=== PATIENT | male | born 1985 | race Caucasian/White ===

== ENCOUNTER 2018-02-18 18:09 | Emergency (ER) | payer OTHER ==
[2018-02-18] MEDS ORDERED: IBUPROFEN 400 MG TAB ONE (19:41)
--- NOTE | 2018-02-18 19:58 | EDPHYS ---
Physician Documentation [facility] Name: Mahendra Xie Age: 32 yrs Sex: Male : 1985 Arrival Date: 02/18/2018 Time: 18:12 Bed 12 Private MD: None, None ED Physician Vamshi Azul HPI: 02/18 19:45 This 32 yrs old Male presents to ER via Ambulatory with complaints of Ankle jr8 Injury. 19:45 The patient presents with pain, swelling, tenderness. The complaints affect the right jr8 ankle. Onset: The symptoms/episode began/occurred acutely, today. Context: Patient was throwing large metal bar which landed on ankle. Pain and swelling since incident . Associated signs and symptoms: The patient has no apparent associated signs or symptoms. Modifying factors: The symptoms are alleviated by nothing, the symptoms are aggravated by movement. Severity of symptoms: At their worst the symptoms were mild, in the emergency department the symptoms are unchanged. The patient has not experienced similar symptoms in the past. The patient has not recently seen a physician. Historical: - Allergies: 18:38 No Known Allergies; aj - Home Meds: 18:38 duloxetine oral oral [Active]; Phenergan Oral [Active]; Zofran Oral [Active]; aj - PMHx: 18:38 Hypertension; Anxiety; Depression; Chronic pain; Migraines; aj - PSHx: 18:38 Cholecystectomy; aj - Immunization history:: Adult Immunizations up to date. - Social history:: Smoking status: Patient uses tobacco products, smokes one pack cigarettes per day. - Ebola Screening: : Patient negative for fever greater than or equal to 101.5 degrees Fahrenheit, and additional compatible Ebola Virus Disease symptoms Patient denies exposure to infectious person Patient denies travel to an Ebola-affected area in the 21 days before illness onset No symptoms or risks identified at this time. ROS: 19:45 Eyes: Negative for injury, pain, redness, and discharge, ENT: Negative for injury, jr8 pain, and discharge, Neck: Negative for injury, pain, and swelling, Cardiovascular: Negative for chest pain, palpitations, and edema, Respiratory: Negative for shortness of breath, cough, wheezing, and pleuritic chest pain, Abdomen/GI: Negative for abdominal pain, nausea, vomiting, diarrhea, and constipation, Back: Negative for injury and pain, Skin: Negative for injury, rash, and discoloration, Neuro: Negative for headache, weakness, numbness, tingling, and seizure. 19:45 MS/extremity: Positive for abrasion, pain, swelling, tenderness, of the right ankle. Exam: 19:45 Cardiovascular: Regular rate and rhythm with a normal S1 and S2. No gallops, murmurs, jr8 or rubs. Normal PMI, no JVD. No pulse deficits. Respiratory: Lungs have equal breath sounds bilaterally, clear to auscultation and percussion. No rales, rhonchi or wheezes noted. No increased work of breathing, no retractions or nasal flaring. Skin: Warm, dry with normal turgor. Normal color with no rashes, no lesions, and no evidence of cellulitis. Neuro: Awake and alert, GCS 15, oriented to person, place, time, and situation. Cranial nerves II-XII grossly intact. Motor strength 5/5 in all extremities. Sensory grossly intact. Cerebellar exam normal. Normal gait. 19:45 Musculoskeletal/extremity: Extremities: grossly normal except: noted in the right ankle: abrasion, pain, swelling, tenderness, Swelling localized to lateral malleolus , ROM: intact in all extremities, full active range of motion, full passive range of motion, limited passive range of motion, limited active range of motion due to pain, Circulation is intact in all extremities. Sensation intact. Vital Signs: 18:38 BP 131 / 80; Pulse 86; Resp 16; Temp 98.2; Pulse Ox 97% on R/A; Weight 90.72 kg; Height aj 6 ft. 0 in. (182.88 cm) (R); 18:38 Body Mass Index 27.12 (90.72 kg, 182.88 cm) aj MDM: 19:16 Patient medically screened. jr8 19:56 Data reviewed: vital signs, nurses notes, radiologic studies, plain films, and as a jr8 result, I will discharge patient. Data interpreted: Pulse oximetry: on room air is 97 %. Interpretation: normal. Counseling: I had a detailed discussion with the patient and/or guardian regarding: the historical points, exam findings, and any diagnostic results supporting the discharge/admit diagnosis, radiology results, the need for outpatient follow up, a orthopedic surgeon, to return to the emergency department if symptoms worsen or persist or if there are any questions or concerns that arise at home. 02/18 18:40 Order name: XRAY Ankle RIGHT 3 view; Complete Time: :14 Administered Medications: 19:41 Drug: Ibuprofen 800 mg Route: PO; 20:22 Follow up: Response: No adverse reaction; No change in condition 20:11 Drug: Tetanus-Diphtheria Toxoid Adult 0.5 ml {[employer]: [employer]. Exp: 05/07/2020. Lot #: [id number]. } Route: IM; Site: right deltoid; 20:22 Follow up: Response: No adverse reaction; No change in condition Disposition: 02/19 07:19 Co-signature as Attending Physician, Vamshi Azul MD I agree with the assessment and [facility] plan of care. Disposition: 02/18/18 19:57 Discharged to Home. Impression: Contusion of right ankle. - Condition is Stable. - Discharge Instructions: Ankle Pain. - Medication Reconciliation Form, Thank You Letter, Antibiotic Education, Prescription Opioid Use form. - Follow up: Darshan Gomez MD; When: As needed; Reason: Recheck today's complaints, Continuance of care, Re-evaluation by your physician. - Problem is new. - Symptoms have improved. Signatures: Dispatcher [employer] EDMS Laura To RN RN aj Anderson, Corey, MD MD cha Chretien, Felicia, RN RN Norbert Rodney PA PA jr8 Corrections: (The following items were deleted from the chart) 02/18 20:24 19:57 02/18/2018 19:57 Discharged to Home. Impression: Contusion of right ankle. Condition is Stable. Forms are Medication Reconciliation Form, Thank You Letter, Antibiotic Education, Prescription Opioid Use. Follow up: Dr. Darshan Gomez; When: As needed; Reason: Recheck today's complaints, Continuance of care, Re-evaluation by your physician. Problem is new. Symptoms have improved. jr8
--- NOTE | 2018-02-18 19:58 | ER ---
Nurse's Notes [facility] Name: Mahendra Xie Age: 32 yrs Sex: Male : 1985 Arrival Date: 02/18/2018 Time: 18:12 Bed 12 Private MD: None, None Diagnosis: Contusion of right ankle Presentation: 02/18 18:36 Presenting complaint: Patient states: Right ankle pain since yesterday after dropping a aj plate on right ankle. Transition of care: patient was not received from another setting of care. Onset of symptoms was February 17, 2018. Risk Assessment: Do you want to hurt yourself or someone else? Patient reports no desire to harm self or others. Care prior to arrival: None. 18:36 Method Of Arrival: Ambulatory 18:36 Acuity: SERENA 4 aj 20:23 Initial Sepsis Screen: Does the patient meet any 2 criteria? No. Patient's initial fc sepsis screen is negative. Does the patient have a suspected source of infection? No. Patient's initial sepsis screen is negative. Triage Assessment: 18:38 General: Appears in no apparent distress. comfortable, Behavior is calm, cooperative, aj appropriate for age. Pain: Complains of pain in right ankle. Neuro: Level of Consciousness is awake, alert, obeys commands, Oriented to person, place, time, situation, Appropriate for age. Respiratory: Airway is patent Respiratory effort is even, unlabored, Respiratory pattern is regular, symmetrical. Derm: Skin is intact, is healthy with good turgor, Skin is pink, warm \T\ dry. normal. Musculoskeletal: Reports pain in right ankle. Historical: - Allergies: 18:38 No Known Allergies; aj - Home Meds: 18:38 duloxetine oral oral [Active]; Phenergan Oral [Active]; Zofran Oral [Active]; aj - PMHx: 18:38 Hypertension; Anxiety; Depression; Chronic pain; Migraines; aj - PSHx: 18:38 Cholecystectomy; aj - Immunization history:: Adult Immunizations up to date. - Social history:: Smoking status: Patient uses tobacco products, smokes one pack cigarettes per day. - Ebola Screening: : Patient negative for fever greater than or equal to 101.5 degrees Fahrenheit, and additional compatible Ebola Virus Disease symptoms Patient denies exposure to infectious person Patient denies travel to an Ebola-affected area in the days before illness onset No symptoms or risks identified at this time. Screenin:21 Abuse screen: Denies threats or abuse. Nutritional screening: No deficits noted. fc Tuberculosis screening: No symptoms or risk factors identified. Fall Risk None identified. Assessment: 19:20 General: Appears uncomfortable, Behavior is calm, cooperative, appropriate for age. fc Pain: Complains of pain in right ankle Pain currently is 9 out of 10 on a pain scale. Quality of pain is described as aching, throbbing, Pain began 1 day ago. Is continuous, Aggravated by increased activity, repositioning, weight bearing. Neuro: Level of Consciousness is awake, alert, obeys commands, Oriented to person, place, time, situation. Cardiovascular: No deficits noted. Respiratory: No deficits noted. GI: No deficits noted. : No deficits noted. EENT: No deficits noted. Derm: Skin is pink, warm \T\ dry. Musculoskeletal: Circulation, motion, and sensation intact. Capillary refill < 3 seconds, Range of motion: intact in all extremities, Swelling present in right ankle Reports pain in right ankle. 19:30 Reassessment: Norbert HOWELL in to see and examine pt. fc 20:00 Reassessment: No changes from previously documented assessment. Patient and/or family fc updated on plan of care and expected duration. Pain level reassessed. Patient is alert, oriented x 3, equal unlabored respirations, skin warm/dry/pink. Pt pending discharge. Vital Signs: 18:38 BP 131 / 80; Pulse 86; Resp 16; Temp 98.2; Pulse Ox 97% on R/A; Weight 90.72 kg; Height aj 6 ft. 0 in. (182.88 cm) (R); 18:38 Body Mass Index 27.12 (90.72 kg, 182.88 cm) aj ED Course: 18:12 Patient arrived in ED. mr 18:12 None, None is Private Physician. mr 18:37 Triage completed. aj 18:38 Arm band placed on left wrist. Patient placed in waiting room, Patient notified of wait aj time. X-ray ordered. 19:16 Norbert Rodney PA is PHCP. jr8 19:16 Vamshi Azul MD is Attending Physician. jr8 19:21 Patient has correct armband on for positive identification. Call light in reach. fc 19:21 No provider procedures requiring assistance completed. Patient did not have IV access fc during this emergency room visit. 19:50 X-ray completed. Portable x-ray completed in exam room. Patient tolerated procedure bb2 well. 19:51 XRAY Ankle RIGHT 3 view In Process Unspecified. EDMS 19:57 Darshan Gomez MD is Referral Physician. jr8 Administered Medications: 19:41 Drug: Ibuprofen 800 mg Route: PO; fc 20:22 Follow up: Response: No adverse reaction; No change in condition fc 20:11 Drug: Tetanus-Diphtheria Toxoid Adult 0.5 ml {[employer]: [employer]. Exp: 05/07/2020. Lot #: [id number]. } Route: IM; Site: right deltoid; 20:22 Follow up: Response: No adverse reaction; No change in condition fc Outcome: 19:57 Discharge ordered by . jrVivi 20:23 Discharged to home ambulatory, with family. fc 20:23 Condition: good 20:23 Discharge instructions given to patient, family, Instructed on discharge instructions, follow up and referral plans. wound care, Demonstrated understanding of instructions, follow-up care, wound care, Prescriptions given X none 20:24 Patient left the ED. Signatures: Dispatcher [employer] EDOR Laura To RN RN aj Rivera, Maria mr Digna Koenig RN RN Norbert Rodney PA PA jrRaquel Monroy bb2
--- NOTE | 2018-02-18 20:09 | RAD REPORT ---
EXAM DESCRIPTION: RAD - Ankle Right 3 View - 02/18/2018 7:51 pm CLINICAL HISTORY: Trauma to the ankle, persistent pain COMPARISON: None. FINDINGS: No fracture, dislocation or periosteal reaction. No joint effusion seen. No joint space na rrowing. Lateral leg and ankle soft tissue swelling present. No foreign body. IMPRESSION: Soft tissue swelling with no foreign body or air. No acute bone or joint finding.
[2018-02-18] MEDS ORDERED: TETANUS & DIPHTHERIA TOX,ADULT 0.5 ML VIAL ONE (20:20)
== END 2018-02-18 20:24 | disposition home or self-care (01) ==
LOC: ER 18:09
DX: S90.01XA Contusion of right ankle, initial encounter (principal); I10 Essential (primary) hypertension; F41.9 Anxiety disorder, unspecified; F32.9 Major depressive disorder, single episode, unspecified; F17.210 Nicotine dependence, cigarettes, uncomplicated; W20.8XXA Other cause of strike by thrown, projected or falling object, initial encounter; Y93.89 Activity, other specified; Y92.9 Unspecified place or not applicable; Y99.9 Unspecified external cause status; Z23 Encounter for immunization
CPT/HCPCS: 90714; 99283

== ENCOUNTER 2019-01-06 01:48 | Emergency (ER) | payer OTHER ==
[2019-01-06 02:41] LABS: Absolute Lymphocytes (CBC) 2.4 K/uL (0.7-4.9); Absolute Monocytes 0.8 K/uL (0.1-1.3); Absolute Neutrophil 6.8 K/uL (1.8-8.0); Basophils % 0.3 % (0-1.3); Hematocrit 44.1 % (39.6-49.0); Lymphocytes % 23.8 % (15.3-44.8); MPV 10.3 fL (7.6-11.3); RBC Red Blood Cell Count 4.86 M/uL (4.33-5.43)
[2019-01-06 02:49] LABS: Barbiturates NEGATIVE (NEGATIVE); Benzodiazepines NEGATIVE (NEGATIVE); Cocaine NEGATIVE (NEGATIVE); METHAMPHETAM NEGATIVE (NEGATIVE); Methadone NEGATIVE (NEGATIVE); Opiates NEGATIVE (NEGATIVE); Phencyclidine NEGATIVE (NEGATIVE); THC Cannibis NEGATIVE (NEGATIVE)
[2019-01-06 02:52] LABS: Protime INR 0.98
[2019-01-06 02:58] LABS: ALT/SGPT 33 U/L (12-78); AST/SGOT 27 U/L (15-37); Albumin 4.1 g/dL (3.4-5.0); Alkaline Phosphatase 69 U/L (45-117); BUN Blood Urea Nitrogen 16 mg/dL (7-18); Bicarbonate 22 mmol/L (21-32); Bilirubin Direct < 0.1 mg/dL (0-0.2); Bilirubin Total 0.3 mg/dL (0.2-1.0); Glucose Level 92 mg/dL (74-106); Potassium 3.6 mmol/L (3.5-5.1); Protein, Total 7.7 g/dL (6.4-8.2); Sodium Level 141 mmol/L (136-145)
[2019-01-06] MEDS ORDERED: NA CHLORIDE 0.9% 1,000 ML ONE (04:15)
[2019-01-06 04:18] LABS: Urine Blood NEGATIVE (NEG); Urine Glucose NEGATIVE (NEG); Urine Protein NEGATIVE (NEG); Urine Specific Gravity <1.005 (1.005-1.030); Urine pH 5.5 (5.0-7.0)
--- NOTE | 2019-01-06 06:25 | EDPHYS ---
Physician Documentation [facility] Name: Mahendra Xie Age: 33 yrs Sex: Male : 1985 Arrival Date: 01/06/2019 Time: 01:49 Bed 17 Private MD: ED Physician Hany Villegas HPI: 01/06 06:21 This 33 yrs old Male presents to ER via Ambulatory with complaints of Psych tw4 Problem. 06:21 The patient presents to the emergency department with anxiety, depression, suicide tw4 ideation, but the patient has no formulated plan. Onset: The symptoms/episode began/occurred today. Past psychiatric history: Prior diagnosis: depression. Severity of symptoms: At their worst the symptoms were moderate in the emergency department the symptoms are unchanged. The patient has not experienced similar symptoms in the past. Historical: - Allergies: 02:04 No Known Allergies; tl2 - Home Meds: 02:04 duloxetine 60 mg oral cpDR 1 cap once daily [Active]; tl2 - PMHx: 02:04 Anxiety; Chronic pain; Depression; Hypertension; Migraines; TBI; tl2 - PSHx: 02:04 BlL ankle sx; neck sx; tl2 - Immunization history:: Adult Immunizations up to date. - Social history:: Smoking status: Patient uses tobacco products, smokes one pack cigarettes per day. Patient uses alcohol, on a daily basis. claims drinking about a 6 pack/day. Patient/guardian denies using street drugs. - Ebola Screening: : No symptoms or risks identified at this time. ROS: 06:21 Constitutional: Negative for fever, chills, and weight loss, Eyes: Negative for injury, tw4 pain, redness, and discharge, Cardiovascular: Negative for chest pain, palpitations, and edema, Respiratory: Negative for shortness of breath, cough, wheezing, and pleuritic chest pain, Abdomen/GI: Negative for abdominal pain, nausea, vomiting, diarrhea, and constipation, Back: Negative for injury and pain, MS/Extremity: Negative for injury and deformity. 06:21 Psych: Positive for depression, suicidal ideation. Exam: 06:21 Constitutional: This is a well developed, well nourished patient who is awake, alert, tw4 and in no acute distress. Head/Face: Normocephalic, atraumatic. Cardiovascular: Regular rate and rhythm with a normal S1 and S2. No gallops, murmurs, or rubs. Normal PMI, no JVD. No pulse deficits. Respiratory: Lungs have equal breath sounds bilaterally, clear to auscultation and percussion. No rales, rhonchi or wheezes noted. No increased work of breathing, no retractions or nasal flaring. Abdomen/GI: Soft, non-tender, with normal bowel sounds. No distension or tympany. No guarding or rebound. No evidence of tenderness throughout. MS/ Extremity: Pulses equal, no cyanosis. Neurovascular intact. Full, normal range of motion. Neuro: Awake and alert, GCS 15, oriented to person, place, time, and situation. Cranial nerves II-XII grossly intact. Motor strength 5/5 in all extremities. Sensory grossly intact. Cerebellar exam normal. Normal gait. 06:21 Psych: exam not indicated, Behavior/mood is cooperative, depressed, Affect is flat, Oriented to person, place, time, Patient having thoughts of suicide. Judgement / Insight is impaired. Vital Signs: 02:04 BP 132 / 85; Pulse 84; Resp 18; Temp 97.8(O); Pulse Ox 98% on R/A; Weight 92.99 kg; tl2 Height 6 ft. 0 in. (182.88 cm); Pain 0/10; 03:00 BP 137 / 82; Pulse 85; Resp 16; Pulse Ox 95% on R/A; lp1 04:00 BP 119 / 62; Pulse 84; Resp 18; Pulse Ox 99% on R/A; lp1 05:00 BP 137 / 92; Pulse 81; Resp 18; Pulse Ox 97% on R/A; lp1 05:00 BP 137 / 92; Pulse 81; Resp 18; Pulse Ox 96% on R/A; lp1 06:00 BP 138 / 79; Pulse 82; Resp 16; Pulse Ox 98% on R/A; lp1 02:04 Body Mass Index 27.80 (92.99 kg, 182.88 cm) tl2 MDM: 02:04 Patient medically screened. tw4 06:23 Differential diagnosis: drug withdrawal. Data reviewed: vital signs, nurses notes. Data tw4 interpreted: Pulse oximetry: Interpretation: normal. Counseling: I had a detailed discussion with the patient and/or guardian regarding: the historical points, exam findings, and any diagnostic results supporting the discharge/admit diagnosis, lab results. Other consultation: Psychiatrist Dr Huffman [id number] accepts for transfer. 01/06 02:04 Order name: Acetaminophen tw 01/06 02:04 Order name: Basic Metabolic Panel; Complete Time: 05:09 4 01/06 02:04 Order name: CBC with Diff 01/06 02:04 Order name: ETOH Level; Complete Time: 05:09 4 01/06 02:04 Order name: Hepatic Function 01/06 02:04 Order name: PT-INR 01/06 02:04 Order name: Ptt, Activated 01/06 02:04 Order name: Salicylate rust 01/06 02:04 Order name: Urine Drug Screen rust 01/06 02:04 Order name: EKG; Complete Time: 02:05 rust 01/06 02:04 Order name: EKG - Nurse/Tech; Complete Time: 02:22 rust 01/06 02:04 Order name: IV Saline Lock; Complete Time: 02:30 rust 01/06 02:31 Order name: Urine Dipstick--Ancillary (enter results) ak 01/06 02:04 Order name: Labs collected and sent; Complete Time: 02:29 rust 01/06 02:04 Order name: Urine Dipstick-Ancillary (obtain specimen); Complete Time: 02:30 tw4 Administered Medications: 04:05 Drug: NS 0.9% 1000 ml Route: IV; Rate: 1000 ml; Site: right antecubital; lp1 05:30 Follow up: IV Status: Completed infusion; IV Intake: 1000ml lp1 Disposition: 01/06/19 06:25 Transfer ordered to Psych Facility. Diagnosis are Suicidal ideations, Major depressive disorder, recurrent. - Reason for transfer: Higher level of care. - Accepting physician is Dr Huffman. - Condition is Stable. - Problem is new. - Symptoms are unchanged. Signatures: Dispatcher [employer] Ai Ochoa RN RN lp1 Sherri Pearl RN RN tl2 Hany Villegas MD MD tw4 Corrections: (The following items were deleted from the chart) 06:42 06:25 01/06/2019 06:25 Transfer ordered to Psych Facility. Diagnosis is Suicidal lp1 ideations; Major depressive disorder, recurrent. Reason for transfer: Higher level of care. Accepting physician is Dr Huffman. Condition is Stable. Problem is new. Symptoms are unchanged. tw4
--- NOTE | 2019-01-06 06:25 | ER ---
Nurse's Notes [facility] Name: Mahendra Xie Age: 33 yrs Sex: Male : 1985 Arrival Date: 01/06/2019 Time: 01:49 Bed 17 Private MD: Diagnosis: Suicidal ideations;Major depressive disorder, recurrent Presentation: 01/06 02:02 Presenting complaint: Patient states: "My medicine isn't working and I'm just tired of tl2 fighting myself and feeling worthless. All I do is work all day and then I come home and drink." Pt reports suicidal thoughts but no plan. Denies homicidal thoughts. Transition of care: patient was not received from another setting of care. Onset of symptoms was January 06, 2019. Risk Assessment: Do you want to hurt yourself or someone else? Patient reports no desire to harm self or others. Initial Sepsis Screen: Does the patient meet any 2 criteria? No. Patient's initial sepsis screen is negative. Does the patient have a suspected source of infection? No. Patient's initial sepsis screen is negative. Care prior to arrival: None. 02:02 Method Of Arrival: Ambulatory tl2 02:02 Acuity: SERENA 2 tl2 Triage Assessment: 02:04 General: Appears in no apparent distress. comfortable, Behavior is cooperative, tl2 appropriate for age, flat, Smells of alcohol. Pain: Denies pain. Neuro: Level of Consciousness is awake, alert, obeys commands, Oriented to person, place, time, situation. Cardiovascular: Denies chest pain. Respiratory: Airway is patent Respiratory effort is even, unlabored, Respiratory pattern is regular, symmetrical. Historical: - Allergies: 02:04 No Known Allergies; tl2 - Home Meds: 02:04 duloxetine 60 mg oral cpDR 1 cap once daily [Active]; tl2 - PMHx: 02:04 Anxiety; Chronic pain; Depression; Hypertension; Migraines; TBI; tl2 - PSHx: 02:04 BlL ankle sx; neck sx; tl2 - Immunization history:: Adult Immunizations up to date. - Social history:: Smoking status: Patient uses tobacco products, smokes one pack cigarettes per day. Patient uses alcohol, on a daily basis. claims drinking about a 6 pack/day. Patient/guardian denies using street drugs. - Ebola Screening: : No symptoms or risks identified at this time. Screenin:31 Abuse screen: Denies threats or abuse. Denies injuries from another. Nutritional lp1 screening: No deficits noted. Tuberculosis screening: No symptoms or risk factors identified. Fall Risk None identified. Assessment: 02:32 General: Appears in no apparent distress. Behavior is calm, cooperative. Pain: Denies lp1 pain. Neuro: Level of Consciousness is awake, alert, obeys commands, Oriented to person, place, time, situation. Cardiovascular: Patient's skin is warm and dry. Respiratory: Respiratory effort is even, unlabored. GI: No deficits noted. : No deficits noted. EENT: No deficits noted. Derm: Skin is intact, Skin is dry, Skin is normal. Musculoskeletal: No deficits noted. 03:34 Reassessment: Patient appears in no apparent distress at this time. Patient resting, lp1 eyes closed, respirations unlabored; friend at bedside. 04:30 Reassessment: Patient appears in no apparent distress at this time. Patient and/or lp1 family updated on plan of care and expected duration. Pain level reassessed. Patient resting, eyes closed, respirations unlabored. 04:41 Reassessment: Nurse to Nurse report given to DAYANARA Mackey at [facility]. lp1 05:30 Reassessment: Patient appears in no apparent distress at this time. No changes from lp1 previously documented assessment. 06:33 Reassessment: EMS at bedside for transfer. lp1 06:35 Reassessment: Patient is alert, oriented x 3, equal unlabored respirations, skin lp1 warm/dry/pink. Neuro: Gait is steady, Pupils are PERRLA. Psych: 02:07 Subjective: Patient's mood is sad, hopeless, Delusions are denied, Hallucinations are tl2 denied Having thoughts of suicide. Denies suicidal plan. Objective: Patient is cooperative, Speech is normal, Affect is flat. Interventions: Removed personal items and placed in bag. Patient placed in hospital gown. Suicide Risk Assessment: Sad Person Scale: Sex of patient: Male: Score 1 point. Age of patient: Score 1 point if patient 15-34. Depression: Score 1 point if signs of depression are present. Previous Attempt: Score 0 point if patient has not previously attempted suicide. Substance Abuse: Score 1 point if patient abuses alcohol or drugs. Rational Thinking: Score 0 point if patient has rational thinking. Social Support: Score 0 if social support is present/available. Organized Plan: Score 0 if patient did not have an organized plan in place. Relationship: Score 1 point if patient is , , , or for a single male Chronic Sickness: Score 0 point if patient does not have a chronic illness, debilitating, or severe disorder. TOTAL POINTS: If total points are 3-4, proposed clinical action is close follow-up/consider hospitalization. Safety Checks: Personal items have been removed. Door is open. Visitors are present. Patient uses 6 pack of beer, daily. Last use was 1 days ago. Commitment: Patient will be a voluntary commitment. Vital Signs: 02:04 BP 132 / 85; Pulse 84; Resp 18; Temp 97.8(O); Pulse Ox 98% on R/A; Weight 92.99 kg; tl2 Height 6 ft. 0 in. (182.88 cm); Pain 0/10; 03:00 BP 137 / 82; Pulse 85; Resp 16; Pulse Ox 95% on R/A; lp1 04:00 BP 119 / 62; Pulse 84; Resp 18; Pulse Ox 99% on R/A; lp1 05:00 BP 137 / 92; Pulse 81; Resp 18; Pulse Ox 97% on R/A; lp1 05:00 BP 137 / 92; Pulse 81; Resp 18; Pulse Ox 96% on R/A; lp1 06:00 BP 138 / 79; Pulse 82; Resp 16; Pulse Ox 98% on R/A; lp1 02:04 Body Mass Index 27.80 (92.99 kg, 182.88 cm) tl2 ED Course: 01:49 Patient arrived in ED. ds1 02:03 Triage completed. tl2 02:04 Hany Villegas MD is Attending Physician. tw4 02:04 Arm band placed on right wrist. tl2 02:07 Ai Singh, DAYANARA is Primary Nurse. lp1 02:15 Safety checks: Door open/sign placed on door: yes. Family/friend present: yes. Sitter cm6 present: Yes. 02:20 EKG done, by ED staff, reviewed by Hany Villegas MD. Inserted saline lock: 20 gauge lp1 in right antecubital area, using aseptic technique. Blood collected. 02:30 Safety checks: Items removed: yes. Door open/sign placed on door: yes. Family/friend cm6 present: yes. Sitter present: Yes. 02:33 Patient has correct armband on for positive identification. Placed in gown. lp1 02:48 Safety checks: Items removed: yes. Door open/sign placed on door: yes. Family/friend cm6 present: yes. Sitter present: Yes. 03:03 Safety checks: Items removed: yes. Door open/sign placed on door: yes. Family/friend cm6 present: yes. Sitter present: Yes. 03:18 Safety checks: Items removed: yes. Door open/sign placed on door: yes. Family/friend cm6 present: yes. Sitter present: Yes. 03:27 Safety checks: Items removed: yes. Door open/sign placed on door: yes. Family/friend cm6 present: yes. Sitter present: Yes. 03:33 Safety checks: Items removed: yes. Door open/sign placed on door: yes. Family/friend cm6 present: yes. Sitter present: Yes. 03:49 Safety checks: Items removed: yes. Door open/sign placed on door: yes. Family/friend cm6 present: yes. Sitter present: Yes. 04:04 Safety checks: Items removed: yes. Door open/sign placed on door: yes. Family/friend cm6 present: yes. Sitter present: Yes. 04:19 Safety checks: Items removed: yes. Door open/sign placed on door: yes. Family/friend cm6 present: yes. Sitter present: Yes. 04:35 Safety checks: Items removed: yes. Door open/sign placed on door: yes. Family/friend cm6 present: yes. Sitter present: Yes. 04:40 [facility] cartographic drafter arrived. de 04:50 Safety checks: Items removed: yes. Door open/sign placed on door: yes. Family/friend cm6 present: yes. Sitter present: Yes. 05:05 Safety checks: Items removed: yes. Door open/sign placed on door: yes. Family/friend cm6 present: yes. Sitter present: Yes. 05:20 Safety checks: Items removed: yes. Door open/sign placed on door: yes. Family/friend cm6 present: yes. Sitter present: Yes. 05:35 Safety checks: Items removed: yes. Door open/sign placed on door: yes. Family/friend cm6 present: yes. Sitter present: Yes. 05:50 Safety checks: Items removed: yes. Door open/sign placed on door: yes. Family/friend cm6 present: yes. Sitter present: Yes. 06:05 Safety checks: Items removed: yes. Door open/sign placed on door: yes. Family/friend cm6 present: yes. Sitter present: Yes. 06:20 Safety checks: Items removed: yes. Door open/sign placed on door: yes. Family/friend cm6 present: yes. Sitter present: Yes. 06:32 Safety checks: Items removed: yes. Door open/sign placed on door: yes. Family/friend cm6 present: yes. Sitter present: Yes. 06:34 No provider procedures requiring assistance completed. IV discontinued, No lp1 redness/swelling at site. Pressure dressing applied. Administered Medications: 04:05 Drug: NS 0.9% 1000 ml Route: IV; Rate: 1000 ml; Site: right antecubital; lp1 05:30 Follow up: IV Status: Completed infusion; IV Intake: 1000ml lp1 Intake: 05:30 IV: 1000ml; Total: 1000ml. lp1 Output: 03:15 Urine: 900ml (Voided); Total: 900ml. lp1 04:06 Urine: 650ml (Voided); Total: 1550ml. lp1 06:30 Urine: 650ml (Voided); Total: 2200ml. lp1 Outcome: 06:25 ER care complete, transfer ordered by . tw4 06:40 Transferred by ground EMS Note: To [facility] lp1 06:40 Condition: good 06:40 Instructed on the need for transfer. 06:42 Patient left the ED. lp1 Signatures: Pamela Daniel Laura, RN RN lp1 Sherri Pearl RN RN 2 Jessy Valdivia mt, Terrence, MD MD tw4 Janet Jung cm6
--- NOTE | 2019-01-06 16:50 | EKG ---
Test Date: 2019-01-06 Test Time: 02:14:04 [employer]umin[employer] Boats Assembler: JORDYN MEASUREMENT RESULTS: Intervals: Rate: 81 RI: 136 QRSD: 88 QT: 366 QTc: 425 [place]: P: 70 RI: 136 QRS: 99 T: 44 INTERPRETIVE STATEMENTS: Normal sinus rhythm Biatrial enlargement Rightward axis Abnormal ECG Compared to ECG 04/10/2016 22:25:56 Atrial abnormality now present Sinus arrhythmia no longer present Electronically Signed On 01-06-19 16:49:19 CDT by Rojas Cordon
== END 2019-01-06 06:42 ==
LOC: ER 01:48
DX: F33.9 Major depressive disorder, recurrent, unspecified (principal); I10 Essential (primary) hypertension; F41.9 Anxiety disorder, unspecified; F17.210 Nicotine dependence, cigarettes, uncomplicated
CPT/HCPCS: 93005; 85025; 80048; 36415; 80320; 80329 ×2; 85610; 80076; 80307 ×8; 85730; 81003; 96360; 99285; J7030

== ENCOUNTER 2019-02-26 14:28 | Emergency (ER) | payer OTHER ==
--- NOTE | 2019-02-26 15:45 | RAD REPORT ---
EXAM DESCRIPTION: RAD - Chest Pa And Lat (2 Views) - 02/26/2019 3:23 pm CLINICAL HISTORY: Chest pain COMPARISON: January 2009 TECHNIQUE: PA and lateral views of the chest were obtained. FINDINGS: The lungs are clear. Heart size is normal and central vasculature is within normal limit s. No pleural effusion or pneumothorax seen. No acute bony finding noted. No aortic abnormality. IMPRESSION: No acute cardiopulmonary process.
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
== END 2019-02-26 16:29 | disposition home or self-care (01) ==
LOC: ER 14:28
DX: R07.9 Chest pain, unspecified (principal); R09.1 Pleurisy; F41.9 Anxiety disorder, unspecified; F32.9 Major depressive disorder, single episode, unspecified; I10 Essential (primary) hypertension; Z87.820 Personal history of traumatic brain injury; F17.210 Nicotine dependence, cigarettes, uncomplicated
CPT/HCPCS: 71046; 99284

== ENCOUNTER 2019-08-14 19:36 | Emergency (ER) | payer OTHER ==
[2019-08-14 20:49] LABS: Basophils % 0.7 % (0-1.3); Hematocrit 43.4 % (39.6-49.0); Lymphocytes % 29.9 % (15.3-44.8); MPV 9.8 fL (7.6-11.3); RBC Red Blood Cell Count 4.72 M/uL (4.33-5.43)
[2019-08-14 20:53] LABS: Protime INR 0.97
--- NOTE | 2019-08-14 21:08 | EDPHYS ---
Physician Documentation [facility] Name: Mahendra Xie Age: 33 yrs Sex: Male : 1985 Arrival Date: 08/14/2019 Time: 19:39 Bed 15 Private MD: ED Physician Vamshi Azul HPI: 08/14 21:03 This 33 yrs old Male presents to ER via Ambulatory with complaints of Psych donato Problem, Suicidal Ideation. 21:03 The patient presents to the emergency department with depression, a history of donato substance abuse, Type: whisky, the amount of abuse is unknown, suicide ideation. Onset: The symptoms/episode began/occurred today. Past psychiatric history: Prior diagnosis: depression. Associated signs and symptoms: Pertinent positives; suicide ideation, resolved. Severity of symptoms: At their worst the symptoms were mild in the emergency department the symptoms are unchanged. The patient has not experienced similar symptoms in the past. Historical: - Allergies: 19:55 No Known Allergies; ca1 - Home Meds: 19:55 buspirone 10 mg Oral tab 1 tab daily [Active]; ca1 19:56 duloxetine 90 mg Oral cpDR 1 cap three times a day [Active]; hydrochlorothiazide 25 mg ca1 Oral tab once daily [Active]; - PMHx: 19:55 Anxiety; Bronchitis; Chronic pain; Depression; Hypertension; Migraines; TBI; ca1 - PSHx: 19:56 leg surgery; Cholecystectomy; ca1 - Immunization history:: Adult Immunizations up to date, Flu vaccine is not up to date. - Social history:: Smoking status: Patient uses tobacco products, smokes two packs cigarettes per day. Patient uses alcohol, claims drinking about a 6 pack/day. x 2. - Ebola Screening: : Patient negative for fever greater than or equal to 101.5 degrees Fahrenheit, and additional compatible Ebola Virus Disease symptoms Patient denies exposure to infectious person Patient denies travel to an Ebola-affected area in the 21 days before illness onset No symptoms or risks identified at this time. - Family history:: not pertinent. ROS: 21:03 Constitutional: Negative for fever, chills, and weight loss, Eyes: Negative for injury, donato pain, redness, and discharge, ENT: Negative for injury, pain, and discharge, Neck: Negative for injury, pain, and swelling, Cardiovascular: Negative for chest pain, palpitations, and edema, Respiratory: Negative for shortness of breath, cough, wheezing, and pleuritic chest pain, Abdomen/GI: Negative for abdominal pain, nausea, vomiting, diarrhea, and constipation, Back: Negative for injury and pain, : Negative for injury, bleeding, discharge, and swelling, MS/Extremity: Negative for injury and deformity, Skin: Negative for injury, rash, and discoloration, Neuro: Negative for headache, weakness, numbness, tingling, and seizure, Allergy/Immunology: Negative for hives, rash, and allergies, Endocrine: Negative for neck swelling, polydipsia, polyuria, polyphagia, and marked weight changes, Hematologic/Lymphatic: Negative for swollen nodes, abnormal bleeding, and unusual bruising. 21:03 Psych: Positive for depression, suicidal ideation. Exam: 21:03 Constitutional: This is a well developed, well nourished patient who is awake, alert, donato and in no acute distress. Head/Face: Normocephalic, atraumatic. Eyes: Pupils equal round and reactive to light, extra-ocular motions intact. Lids and lashes normal. Conjunctiva and sclera are non-icteric and not injected. Cornea within normal limits. Periorbital areas with no swelling, redness, or edema. ENT: Nares patent. No nasal discharge, no septal abnormalities noted. Tympanic membranes are normal and external auditory canals are clear. Oropharynx with no redness, swelling, or masses, exudates, or evidence of obstruction, uvula midline. Mucous membranes moist. Neck: Trachea midline, no thyromegaly or masses palpated, and no cervical lymphadenopathy. Supple, full range of motion without nuchal rigidity, or vertebral point tenderness. No Meningismus. Chest/axilla: Normal chest wall appearance and motion. Nontender with no deformity. No lesions are appreciated. Cardiovascular: Regular rate and rhythm with a normal S1 and S2. No gallops, murmurs, or rubs. Normal PMI, no JVD. No pulse deficits. Respiratory: Lungs have equal breath sounds bilaterally, clear to auscultation and percussion. No rales, rhonchi or wheezes noted. No increased work of breathing, no retractions or nasal flaring. Abdomen/GI: Soft, non-tender, with normal bowel sounds. No distension or tympany. No guarding or rebound. No evidence of tenderness throughout. Back: No spinal tenderness. No costovertebral tenderness. Full range of motion. Male : Normal genitalia with no discharge or lesions. Skin: Warm, dry with normal turgor. Normal color with no rashes, no lesions, and no evidence of cellulitis. MS/ Extremity: Pulses equal, no cyanosis. Neurovascular intact. Full, normal range of motion. Neuro: Awake and alert, GCS 15, oriented to person, place, time, and situation. Cranial nerves II-XII grossly intact. Motor strength 5/5 in all extremities. Sensory grossly intact. Cerebellar exam normal. Normal gait. Psych: Awake, alert, with orientation to person, place and time. Behavior, mood, and affect are within normal limits. Vital Signs: 19:56 BP 134 / 84; Pulse 109; Resp 19 S; Pulse Ox 97% on R/A; Weight 99.79 kg (R); Height 6 ca1 ft. (182.88 cm) (R); Pain 7/10; 21:00 jb4 19:56 Body Mass Index 29.84 (99.79 kg, 182.88 cm) ca1 21:00 PT refused further vitals jb4 MDM: 20:05 Patient medically screened. [facility] 21:05 Data reviewed: vital signs, nurses notes. [facility] 08/14 20:06 Order name: Acetaminophen [facility] 08/14 20:06 Order name: Basic Metabolic Panel [facility] 08/14 20:06 Order name: CBC with Diff [facility] 08/14 20:06 Order name: ETOH Level [facility] 08/14 20:06 Order name: Hepatic Function [facility] 08/14 20:06 Order name: PT-INR [facility] 08/14 20:06 Order name: Ptt, Activated [facility] 08/14 20:06 Order name: Salicylate [facility] 08/14 20:06 Order name: IV Saline Lock; Complete Time: 20:26 [facility] 08/14 20:06 Order name: Labs collected and sent; Complete Time: 20:26 [facility] Administered Medications: 21:20 Not Given (Patient Refused): NS 0.9% 1000 ml IV at 1 bolus Per protocol; 1000 mL bolus jb4 Disposition: 08/14/19 21:07 Discharged to Home. Impression: Major depressive disorder, recurrent, Alcohol abuse with intoxication. - Condition is Stable. - Discharge Instructions: Alcohol Intoxication, Suicidal Feelings: How to Help Yourself, Helping Someone Who is Suicidal, Alcohol Intoxication, [id number], Alcohol Abuse and Nutrition, Major Depressive Disorder. - Medication Reconciliation Form, Thank You Letter, Antibiotic Education, Prescription Opioid Use form. - Follow up: Private Physician; When: 2 - 3 days; Reason: Recheck today's complaints, Continuance of care, Re-evaluation by your physician. - Problem is new. - Symptoms have improved. Signatures: Dispatcher [employer] EDMS Vamshi Azul MD MD cha Bryson, James, RN RN jb4 Celi Fallon RN RN ca1 Corrections: (The following items were deleted from the chart) 21:20 20:06 EKG - Nurse/Tech ordered. donato mclean 21:20 20:06 Urine Dipstick-Ancillary ordered. donato mclean 21:21 21:07 08/14/2019 21:07 Discharged to Home. Impression: Major depressive disorder, jb4 recurrent; Alcohol abuse with intoxication. Condition is Stable. Forms are Medication Reconciliation Form, Thank You Letter, Antibiotic Education, Prescription Opioid Use. Follow up: Private Physician; When: 2 - 3 days; Reason: Recheck today's complaints, Continuance of care, Re-evaluation by your physician. Problem is new. Symptoms have improved. donato
--- NOTE | 2019-08-14 21:08 | ER ---
Nurse's Notes [facility] Name: Mahendra Xie Age: 33 yrs Sex: Male : 1985 Arrival Date: 08/14/2019 Time: 19:39 Bed 15 Private MD: Diagnosis: Major depressive disorder, recurrent;Alcohol abuse with intoxication Presentation: 08/14 19:46 Presenting complaint: Presenting complaint: Significant other states: Venkatesh CARPENTER sent ca1 him to the ER for attempted suicide. He attempted to cut his wrist, stab this leg and cut his throat. He had several previous attempts, we were always sent here and then sent to [facility]. Pt intoxicated. 19:51 Transition of care: patient was not received from another setting of care. Onset of ca1 symptoms was August 14, 2019. Risk Assessment: Do you want to hurt yourself or someone else? Patient reports desire/thoughts of hurting themselves or someone else. Provider notified. Initial Sepsis Screen: Does the patient meet any 2 criteria? No. Patient's initial sepsis screen is negative. Does the patient have a suspected source of infection? No. Patient's initial sepsis screen is negative. Care prior to arrival: None. 19:51 Acuity: SERENA 2 ca1 19:51 Method Of Arrival: Ambulatory ca1 Historical: - Allergies: 19:55 No Known Allergies; ca1 - Home Meds: 19:55 buspirone 10 mg Oral tab 1 tab daily [Active]; ca1 19:56 duloxetine 90 mg Oral cpDR 1 cap three times a day [Active]; hydrochlorothiazide 25 mg ca1 Oral tab once daily [Active]; - PMHx: 19:55 Anxiety; Bronchitis; Chronic pain; Depression; Hypertension; Migraines; TBI; ca1 - PSHx: 19:56 leg surgery; Cholecystectomy; ca1 - Immunization history:: Adult Immunizations up to date, Flu vaccine is not up to date. - Social history:: Smoking status: Patient uses tobacco products, smokes two packs cigarettes per day. Patient uses alcohol, claims drinking about a 6 pack/day. x 2. - Ebola Screening: : Patient negative for fever greater than or equal to 101.5 degrees Fahrenheit, and additional compatible Ebola Virus Disease symptoms Patient denies exposure to infectious person Patient denies travel to an Ebola-affected area in the 21 days before illness onset No symptoms or risks identified at this time. - Family history:: not pertinent. Screenin:00 Abuse screen: Denies threats or abuse. Nutritional screening: No deficits noted. jb4 Tuberculosis screening: No symptoms or risk factors identified. Fall Risk None identified. Assessment: 20:00 General: Appears in no apparent distress. comfortable, Behavior is calm, cooperative, jb4 appropriate for age, Smells of alcohol, Pt denies currently wanting to harm himself or other.. Pain: Denies pain. Neuro: Level of Consciousness is awake, alert, obeys commands, Oriented to person, place, time, situation. Cardiovascular: Patient's skin is warm and dry. Respiratory: Airway is patent Respiratory effort is even, unlabored, Respiratory pattern is regular, symmetrical. GI: No signs and/or symptoms were reported involving the gastrointestinal system. : No signs and/or symptoms were reported regarding the genitourinary system. EENT: No signs and/or symptoms were reported regarding the EENT system. Derm: Skin is intact, Skin is pink, warm \T\ dry. Musculoskeletal: Circulation, motion, and sensation intact. Range of motion: intact in all extremities. 21:00 Reassessment: Patient appears in no apparent distress at this time. Patient and/or jb4 family updated on plan of care and expected duration. Pain level reassessed. Patient is alert, oriented x 3, equal unlabored respirations, skin warm/dry/pink. 21:20 Reassessment: PT d/c home with , ambulatory with steady gait. PT and jb4 verbalized understanding of d/c of follow up instructions. Psych: 20:00 Subjective: Patient's mood is sad, Delusions are denied, Hallucinations are denied jb4 Having thoughts of suicide. Objective: Patient is cooperative, Speech is normal, Affect is appropriate. Interventions: Removed personal items and placed in bag. Patient placed in hospital gown. Searched person for dangerous items. Belonging list filled out. Suicide Risk Assessment: Sad Person Scale: Sex of patient: Male: Score 1 point. Age of patient: Score 1 point if patient 15-34. Depression: Score 1 point if signs of depression are present. Previous Attempt: Score 0 point if patient has not previously attempted suicide. Substance Abuse: Score 1 point if patient abuses alcohol or drugs. Rational Thinking: Score 1 point if patient is lacking rational thinking. Social Support: Score 0 if social support is present/available. Organized Plan: Score 0 if patient did not have an organized plan in place. Relationship: Score 0 point if patient has a spouse or domestic partner. Chronic Sickness: Score 1 point if patient has illness, chronic, debilitating, or severe. TOTAL POINTS: If total points are 5-6, proposed clinical action is to strongly consider hospitalization, depending upon confidence in the follow-up arrangement. Implement suicide precautions. Safety Checks: Personal items have been removed. Door is open. Visitors are present. Patient uses. Commitment: Patient will be a voluntary commitment. Vital Signs: 19:56 BP 134 / 84; Pulse 109; Resp 19 S; Pulse Ox 97% on R/A; Weight 99.79 kg (R); Height 6 ca1 ft. (182.88 cm) (R); Pain 7/10; 21:00 jb4 19:56 Body Mass Index 29.84 (99.79 kg, 182.88 cm) ca1 21:00 PT refused further vitals jb4 ED Course: 19:39 Patient arrived in ED. cl3 19:54 Triage completed. ca1 19:56 Arm band placed on right wrist. ca1 20:00 Patient has correct armband on for positive identification. Placed in gown. Bed in low jb4 position. Call light in reach. Side rails up X 1. band lining bander on. Pulse ox on. NIBP on. 20:05 Vamshi Azul MD is Attending Physician. [facility] 20:05 Safety checks: Items removed: yes. Door open/sign placed on door: yes. Family/friend lt1 present: yes. Sitter present: Yes. 20:26 Initial lab(s) drawn, by me, sent to lab. Inserted saline lock: 20 gauge in right lt1 antecubital area, using aseptic technique. 21:00 No provider procedures requiring assistance completed. IV discontinued, PT d/c'ed own jb4 IV. 21:19 Sukh Hanks, RN is Primary Nurse. jb4 Administered Medications: 21:20 Not Given (Patient Refused): NS 0.9% 1000 ml IV at 1 bolus Per protocol; 1000 mL bolus jb4 Outcome: 21:07 Discharge ordered by . donato 21:20 Discharged to home ambulatory, with family. jb4 21:20 Condition: stable 21:20 Discharge instructions given to patient, family, Instructed on discharge instructions, follow up and referral plans. Demonstrated understanding of instructions, follow-up care. 21:21 Patient left the ED. jb4 Signatures: Vamshi Azul MD MD cha Bryson, James RN RN jb4 Celi Fallon RN RN ca1 Virginie, Cindy lt1 Karma August cl3 Corrections: (The following items were deleted from the chart) 19:54 19:46 Presenting complaint: ca1 ca1
[2019-08-14 21:30] LABS: ALT/SGPT 30 U/L (12-78); AST/SGOT 25 U/L (15-37); BUN Blood Urea Nitrogen 13 mg/dL (7-18); Bicarbonate 26 mmol/L (21-32); Glucose Level 91 mg/dL (74-106); Potassium 3.6 mmol/L (3.5-5.1)
[2019-08-14 21:31] LABS: Alkaline Phosphatase 72 U/L (45-117); Bilirubin Direct < 0.1 mg/dL (0-0.2); Bilirubin Total 0.2 mg/dL (0.2-1.0); Protein, Total 7.5 g/dL (6.4-8.2)
[2019-08-14 21:39] LABS: Sodium Level 143 mmol/L (136-145)
[2019-08-14 22:48] VITALS: BP 134/84; O2SAT 97
== END 2019-08-14 21:21 | disposition home or self-care (01) ==
LOC: ER 19:36
DX: F33.9 Major depressive disorder, recurrent, unspecified (principal); F10.129 Alcohol abuse with intoxication, unspecified
CPT/HCPCS: 36415; 80048; 80076; 80320; 80329; 85025; 85610; 85730; 99285

== ENCOUNTER 2019-08-17 19:15 | Emergency (ER) | payer OTHER ==
[2019-08-17 20:12] LABS: Basophils % 0.4 % (0-1.3); Hematocrit 43.5 % (39.6-49.0); Lymphocytes % 22.7 % (15.3-44.8); MPV 10.1 fL (7.6-11.3); RBC Red Blood Cell Count 4.72 M/uL (4.33-5.43)
[2019-08-17 20:20] LABS: Urine Blood NEGATIVE (NEG); Urine Glucose NEGATIVE (NEG); Urine Protein NEGATIVE (NEG); Urine pH 5.5 (5.0-7.0)
[2019-08-17 20:24] LABS: ALT/SGPT 29 U/L (12-78); AST/SGOT 17 U/L (15-37); Albumin 4.1 g/dL (3.4-5.0); Alkaline Phosphatase 72 U/L (45-117); BUN Blood Urea Nitrogen 16 mg/dL (7-18); Bicarbonate 24 mmol/L (21-32); Bilirubin Direct 0.1 mg/dL (0-0.2); Bilirubin Total 0.2 mg/dL (0.2-1.0); Glucose Level 82 mg/dL (74-106); Potassium 3.6 mmol/L (3.5-5.1); Protein, Total 7.8 g/dL (6.4-8.2); Sodium Level 135 mmol/L (136-145)
[2019-08-17 20:27] LABS: Protime INR 0.98
[2019-08-17 20:42] LABS: Barbiturates NEGATIVE (NEGATIVE); Benzodiazepines NEGATIVE (NEGATIVE); Cocaine NEGATIVE (NEGATIVE); METHAMPHETAM NEGATIVE (NEGATIVE); Methadone NEGATIVE (NEGATIVE); Opiates NEGATIVE (NEGATIVE); Phencyclidine NEGATIVE (NEGATIVE); THC Cannibis NEGATIVE (NEGATIVE)
[2019-08-17] MEDS ORDERED: NA CHLORIDE 0.9% 1,000 ML ONE (21:45)
[2019-08-18] MEDS ORDERED: cloNIDine HCL 0.1 MG TAB ONE (03:35)
--- NOTE | 2019-08-18 04:18 | ER ---
Nurse's Notes [facility] Name: Mahendra Xie Age: 33 yrs Sex: Male : 1985 Arrival Date: 08/17/2019 Time: 19:17 Bed 17 [facility] MD: Diagnosis: Suicidal ideations Presentation: 08/17 19:20 Presenting complaint: Patient states: his psych meds have not been working and in the aa1 past 3 days he has tried to kill himself twice in the past 2 days by cutting himself. Multiple superficial lacerations noted to aida forearms. Pt reports he has also drank about 11 beers today. Transition of care: patient was not received from another setting of care. Complicating Factors: There are no complicating factors for this patient. Onset of symptoms was August 17, 2019. Risk Assessment: Do you want to hurt yourself or someone else? Patient reports desire/thoughts of hurting themselves or someone else. Provider notified. Initial Sepsis Screen: Does the patient meet any 2 criteria? No. Patient's initial sepsis screen is negative. Does the patient have a suspected source of infection? Yes: Skin breakdown/wound. Care prior to arrival: None. 19:20 Method Of Arrival: Wheelchair aa1 19:20 Acuity: SERENA 2 aa1 Triage Assessment: 19:20 General: Appears in no apparent distress. comfortable, unkempt, Behavior is calm, aa1 cooperative, appropriate for age. 19:20 General: Smells of alcohol. aa1 Historical: - Allergies: 19:40 No Known Allergies; aa1 - Home Meds: 19:40 buspirone 10 mg Oral tab 1 tab daily [Active]; duloxetine 90 mg Oral cpDR 1 cap three aa1 times a day [Active]; hydrochlorothiazide 25 mg Oral tab once daily [Active]; Ventolin HFA 90 mcg/actuation Nebulizer HFAA [Active]; - PMHx: 19:40 Anxiety; Bronchitis; Chronic pain; Depression; Hypertension; Migraines; TBI; suicide aa1 attempts; - PSHx: 19:40 leg surgery; Cholecystectomy; aa1 - Immunization history:: Last tetanus immunization: up to date. - Social history:: Smoking status: Patient uses tobacco products, smokes two packs cigarettes per day. Patient uses alcohol, on a daily basis. - Ebola Screening: : No symptoms or risks identified at this time. Screenin/11 02:00 Abuse screen: Denies threats or abuse. Denies injuries from another. Nutritional wh screening: No deficits noted. Tuberculosis screening: No symptoms or risk factors identified. Fall Risk None identified. Assessment: 08/17 19:54 General: Appears uncomfortable, Behavior is cooperative. General: Reports Suicidal tr5 ideations. Pain: Complains of pain in right arm and left arm. Neuro: Level of Consciousness is awake, alert, obeys commands, Oriented to person, place, time. Cardiovascular: Heart tones present Capillary refill < 3 seconds. Respiratory: Airway is patent Respiratory effort is even, unlabored, Respiratory pattern is regular, symmetrical. GI: No signs and/or symptoms were reported involving the gastrointestinal system. : No signs and/or symptoms were reported regarding the genitourinary system. EENT: No signs and/or symptoms were reported regarding the EENT system. Derm: Skin Lacerations to bilateral forearms. Musculoskeletal: No signs and/or symptoms reported regarding the musculoskeletal system. Injury Description: Laceration is superficial, not bleeding. 21:00 Reassessment: Patient appears in no apparent distress at this time. Patient and/or tr5 family updated on plan of care and expected duration. Pain level reassessed. Pt has family members at bedside. Sitter in place. 22:00 Reassessment: Patient appears in no apparent distress at this time. Patient and/or tr5 family updated on plan of care and expected duration. Pain level reassessed. Sitter in place. 23:00 Reassessment: Patient appears in no apparent distress at this time. Patient and/or tr5 family updated on plan of care and expected duration. Pain level reassessed. Pt in bed resting. Pt's family in with pt at bedside. Sitter in place. 08/18 01:53 Reassessment: Patient appears in no apparent distress at this time. Patient and/or wh family updated on plan of care and expected duration. Pain level reassessed. Patient is alert, oriented x 3, equal unlabored respirations, skin warm/dry/pink. 02:34 Reassessment: Soil Science Technical Officer from [facility] at bedside for assessment. 03:10 Reassessment: Patient appears in no apparent distress at this time. No changes from previously documented assessment. Patient and/or family updated on plan of care and expected duration. Pain level reassessed. Patient is alert, oriented x 3, equal unlabored respirations, skin warm/dry/pink. 04:19 Reassessment: Patient appears in no apparent distress at this time. No changes from previously documented assessment. Patient and/or family updated on plan of care and expected duration. Pain level reassessed. Patient is alert, oriented x 3, equal unlabored respirations, skin warm/dry/pink. Vital Signs: 08/17 19:20 BP 143 / 104; Pulse 73; Resp 16; Temp 97.6; Pulse Ox 100% on R/A; Weight 99.79 kg; aa1 Height 6 ft. 0 in. (182.88 cm); Pain /; 08/18 02:00 BP 145 / 85; Pulse 84; Resp 18; Temp 96.7; Pulse Ox 99% ; Pain 0/10; cm6 04:30 BP 127 / 84; Pulse 82; Resp 18; Pulse Ox 99% on R/A; wh 08/17 19:20 Body Mass Index 29.84 (99.79 kg, 182.88 cm) aa1 ED Course: 08/17 19:17 Patient arrived in ED. mr 19:20 Arm band placed on right wrist. Patient placed in an exam room, on a stretcher. aa1 19:21 Jose Chavez MD is Attending Physician. [facility] 19:30 Safety checks: Items removed: yes. Door open/sign placed on door: yes. Family/friend oe present: yes. Sitter present: Yes. 19:34 Roddy Bains RN is Primary Nurse. tr5 19:38 Triage completed. aa1 19:45 Safety checks: Items removed: yes. Door open/sign placed on door: yes. Family/friend oe present: yes. Sitter present: Yes. 19:53 Inserted saline lock: 22 gauge in left antecubital area, using aseptic technique. Blood oe collected. 20:00 Safety checks: Items removed: yes. Door open/sign placed on door: yes. Family/friend oe present: yes. Sitter present: Yes. 20:15 Safety checks: Items removed: yes. Door open/sign placed on door: yes. Family/friend oe present: yes. Sitter present: Yes. 20:30 Safety checks: Items removed: yes. Door open/sign placed on door: yes. Family/friend oe present: yes. Sitter present: Yes. 20:45 Safety checks: Items removed: yes. Door open/sign placed on door: yes. Family/friend oe present: yes. Sitter present: Yes. 21:00 Safety checks: Items removed: yes. Door open/sign placed on door: yes. Family/friend oe present: yes. Sitter present: Yes. 21:15 Safety checks: Items removed: yes. Door open/sign placed on door: yes. Family/friend oe present: yes. Sitter present: Yes. 21:30 Safety checks: Items removed: yes. Door open/sign placed on door: yes. Family/friend oe present: yes. Sitter present: Yes. 21:40 Carmita Caballero FNP-C is PHCP. snw 21:45 Safety checks: Items removed: yes. Door open/sign placed on door: yes. Family/friend oe present: yes. Sitter present: Yes. 22:00 Safety checks: Items removed: yes. Door open/sign placed on door: yes. Family/friend oe present: yes. Sitter present: Yes. 22:15 Safety checks: Items removed: yes. Door open/sign placed on door: yes. Family/friend oe present: yes. Sitter present: Yes. 22:30 Safety checks: Items removed: yes. Door open/sign placed on door: yes. Family/friend oe present: yes. Sitter present: Yes. 22:45 Safety checks: Items removed: yes. Door open/sign placed on door: yes. Family/friend oe present: yes. Sitter present: Yes. 23:00 Safety checks: Items removed: yes. Door open/sign placed on door: yes. Family/friend oe present: yes. Sitter present: Yes. 23:15 Safety checks: Items removed: yes. Door open/sign placed on door: yes. Family/friend oe present: yes. Sitter present: Yes. 23:30 Safety checks: Items removed: yes. Door open/sign placed on door: yes. Family/friend oe present: yes. Sitter present: Yes. 23:45 Safety checks: Items removed: yes. Door open/sign placed on door: yes. Family/friend oe present: yes. Sitter present: Yes. 12/11 00:00 Safety checks: Items removed: yes. Door open/sign placed on door: yes. Family/friend oe present: yes. Sitter present: Yes. 00:15 Safety checks: Items removed: yes. Door open/sign placed on door: yes. Family/friend oe present: yes. Sitter present: Yes. 00:30 Safety checks: Items removed: yes. Door open/sign placed on door: yes. Family/friend oe present: no. Sitter present: Yes. 00:45 Safety checks: Items removed: yes. Door open/sign placed on door: yes. Family/friend oe present: no. Sitter present: Yes. 01:00 Safety checks: Items removed: yes. Door open/sign placed on door: yes. Family/friend oe present: no. Sitter present: Yes. 01:15 Safety checks: Items removed: yes. Door open/sign placed on door: yes. Family/friend cm6 present: no. Sitter present: Yes. 01:30 Safety checks: Items removed: yes. Door open/sign placed on door: yes. Family/friend cm6 present: no. Sitter present: Yes. 01:45 Safety checks: Items removed: yes. Door open/sign placed on door: yes. Family/friend cm6 present: no. Sitter present: Yes. 01:45 Report received from Roddy Bains RN. 02:00 Safety checks: Items removed: yes. Door open/sign placed on door: yes. Family/friend cm6 present: no. Sitter present: Yes. 02:00 Patient has correct armband on for positive identification. Placed in gown. Bed in low wh position. Call light in reach. Side rails up X 1. Sitter at bedside. 02:15 Safety checks: Items removed: yes. Door open/sign placed on door: yes. Family/friend cm6 present: no. Sitter present: Yes. 02:30 Safety checks: Items removed: yes. Door open/sign placed on door: yes. Family/friend cm6 present: no. Sitter present: Yes. 02:33 [facility] is evaluating patient. cm6 02:45 Safety checks: Items removed: yes. Door open/sign placed on door: yes. Family/friend cm6 present: no. Sitter present: Yes. 03:00 Safety checks: Items removed: yes. Door open/sign placed on door: yes. Family/friend cm6 present: no. Sitter present: Yes. 03:15 Safety checks: Items removed: yes. Door open/sign placed on door: yes. Family/friend cm6 present: no. Sitter present: Yes. 03:18 [facility] evaluating pt. cm6 03:30 Safety checks: Items removed: yes. Door open/sign placed on door: yes. Family/friend cm6 present: no. Sitter present: Yes. 03:32 [facility] has left. cm6 03:45 Safety checks: Items removed: yes. Door open/sign placed on door: yes. Family/friend cm6 present: no. Sitter present: Yes. 04:00 Safety checks: Items removed: yes. Door open/sign placed on door: yes. Family/friend cm6 present: no. Sitter present: Yes. 04:37 No provider procedures requiring assistance completed. IV discontinued, intact, bleeding controlled, No redness/swelling at site. Administered Medications: 08/17 21:53 Drug: NS 0.9% 1000 ml Route: IV; Rate: 1 bolus; Site: left antecubital; tr5 08/18 04:38 Follow up: Response: No adverse reaction; IV Status: Completed infusion 03:30 Drug: cloNIDine 0.1 mg Route: PO; 04:19 Follow up: Response: No adverse reaction Outcome: 04:17 Discharge ordered by . md 04:37 Discharged to home ambulatory. 04:37 Condition: stable 04:37 Discharge instructions given to patient, Instructed on discharge instructions, follow up and referral plans. POC Demonstrated understanding of instructions, follow-up care, POC 04:38 Patient left the ED. Signatures: Francoise Rodriguez RN RN aa1 Carmita Caballero, SECOND VP HR ASSESSMENT-C SECOND VP HR ASSESSMENT-Csnw Dustin, Liz Turner, Cristian Holland Bobby Fisher MD MD wa Singer, Phillip, MD MD ps1 Mack, Candace cm6 Roddy Bains RN RN tr5 Corrections: (The following items were deleted from the chart) 08/17 20:18 20:04 Safety checks: Items removed: yes. Door open/sign placed on door: yes. oe Family/friend present: yes. Sitter present: Yes. oe 20:19 20:17 Safety checks: Items removed: yes. Door open/sign placed on door: yes. oe Family/friend present: yes. Sitter present: Yes. oe 21:11 20:43 Safety checks: Items removed: yes. Door open/sign placed on door: yes. oe Family/friend present: yes. Sitter present: Yes. oe 21:28 21:24 Safety checks: Items removed: yes. Door open/sign placed on door: yes. oe Family/friend present: yes. Sitter present: Yes. oe 23:20 21:00 Reassessment: Patient appears in no apparent distress at this time. Patient tr5 and/or family updated on plan of care and expected duration. Pain level reassessed. Pt has family members at bedside. tr5 23:20 22:00 Reassessment: Patient appears in no apparent distress at this time. Patient tr5 and/or family updated on plan of care and expected duration. Pain level reassessed. tr5 08/18 00:47 00:45 Safety checks: Items removed: yes. Door open/sign placed on door: yes. oe Family/friend present: yes. Sitter present: Yes. oe 02:32 02:14 Safety checks: Items removed: yes. Door open/sign placed on door: yes. cm6 Family/friend present: no. Sitter present: Yes. cm6 02:36 02:33 Mental health deputy is evaluating patient cm6 cm6 03:44 1210 23:00 BP 145 / 85; Pulse 84bpm; Resp 18bpm; Pulse Ox 99%; Temp 96.7F; Pain 0/10; cm6 cm6 08/18 03:45 00:00 BP 145 / 85; Pulse 84bpm; Resp 18bpm; Pulse Ox 99%; Temp 96.7F; Pain 0/10; cm6 cm6 04:12 03:41 Safety checks: Items removed: yes. Door open/sign placed on door: yes. cm6 Family/friend present: no. Sitter present: Yes. cm6
--- NOTE | 2019-08-18 04:19 | EDPHYS ---
Physician Documentation [facility] Name: Mahendra Xie Age: 33 yrs Sex: Male : 1985 Arrival Date: 08/17/2019 Time: 19:17 Bed 17 Private MD: ED Physician Jose Chavez HPI: 08/17 19:29 This 33 yrs old Male presents to ER via Unassigned with complaints of ps1 Laceration To Arm. 19:29 patient has SI thoughts and has superficial lacerations to bilateral arms. States that ps1 he has been hospitalized for same. On duloxitine with recent increase in medication. Clearly intoxicated. From [place] and in town for work. 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 . Historical: - Allergies: 19:40 No Known Allergies; aa1 - Home Meds: 19:40 buspirone 10 mg Oral tab 1 tab daily [Active]; duloxetine 90 mg Oral cpDR 1 cap three aa1 times a day [Active]; hydrochlorothiazide 25 mg Oral tab once daily [Active]; Ventolin HFA 90 mcg/actuation Nebulizer HFAA [Active]; - PMHx: 19:40 Anxiety; Bronchitis; Chronic pain; Depression; Hypertension; Migraines; TBI; suicide aa1 attempts; - PSHx: 19:40 leg surgery; Cholecystectomy; aa1 - Immunization history:: Last tetanus immunization: up to date. - Social history:: Smoking status: Patient uses tobacco products, smokes two packs cigarettes per day. Patient uses alcohol, on a daily basis. - Ebola Screening: : No symptoms or risks identified at this time. ROS: 19:29 Unable to obtain ROS due to altered mental status, Psych and intoxicated. Unreliable. ps1 21:51 Constitutional: Negative for fever, chills, and weight loss, Eyes: Negative for injury, snw pain, redness, and discharge, ENT: Negative for injury, pain, and discharge, Neck: Negative for injury, pain, and swelling, Cardiovascular: Negative for chest pain, palpitations, and edema, Respiratory: Negative for shortness of breath, cough, wheezing, and pleuritic chest pain, Abdomen/GI: Negative for abdominal pain, nausea, vomiting, diarrhea, and constipation, Back: Negative for injury and pain, : Negative for injury, bleeding, discharge, and swelling, MS/Extremity: Negative for injury and deformity, Skin: Negative for injury, rash, and discoloration, Neuro: Negative for headache, weakness, numbness, tingling, and seizure. 21:51 Psych: Positive for pt states he caused "self harm" so he can see the [facility] psychiatrist sooner and not be on the waiting list. Pt belligerent and stating he is going to leave. PD called for warrant. Exam: 19:29 Constitutional: This is a well developed, well nourished patient who is awake, alert, ps1 and in no acute distress. Head/Face: Normocephalic, atraumatic. Eyes: Pupils equal round and reactive to light, extra-ocular motions intact. Lids and lashes normal. Conjunctiva and sclera are non-icteric and not injected. Chest/axilla: Normal chest wall appearance and motion. Nontender with no deformity. No lesions are appreciated. Cardiovascular: Regular rate and rhythm. No gallops, murmurs, or rubs. Normal PMI, no JVD. No pulse deficits. Respiratory: Lungs have equal breath sounds bilaterally, clear to auscultation and percussion. No rales, rhonchi or wheezes noted. No increased work of breathing, no retractions or nasal flaring. Abdomen/GI: Soft, non-tender, with normal bowel sounds. No distension or tympany. No guarding or rebound. No evidence of tenderness throughout. MS/ Extremity: Pulses equal, no cyanosis. Neurovascular intact. Full, normal range of motion. Neuro: Awake and alert, GCS 15, oriented to person, place, time, and situation. Cranial nerves II-XII grossly intact. Sensory grossly intact. 19:29 Skin: injury, laceration(s), multiple superficial lacerations to bilateral forearms. . 19:29 Psych: Behavior/mood is suicidal, Affect is calm, Patient having thoughts of suicide. Judgement / Insight is impaired. slurring words from intoxication. Vital Signs: 19:20 BP 143 / 104; Pulse 73; Resp 16; Temp 97.6; Pulse Ox 100% on R/A; Weight 99.79 kg; aa1 Height 6 ft. 0 in. (182.88 cm); Pain /10; 12/11 02:00 BP 145 / 85; Pulse 84; Resp 18; Temp 96.7; Pulse Ox 99% ; Pain 0/10; cm6 04:30 BP 127 / 84; Pulse 82; Resp 18; Pulse Ox 99% on R/A; wh 08/17 19:20 Body Mass Index 29.84 (99.79 kg, 182.88 cm) aa1 MDM: 08/17 19:29 Patient medically screened. ps1 21:49 Data reviewed: vital signs, nurses notes. Data interpreted: Pulse oximetry: on room air snw is 100 %. Interpretation: normal. Counseling: I had a detailed discussion with the patient and/or guardian regarding: the historical points, exam findings, and any diagnostic results supporting the discharge/admit diagnosis, need to give IVF for hydration and redraw for ETOH level before [facility] can be called. Pt refuses. Notified I would call police for a warrant, pt states that is fine.. 08/18 01:43 ED course: ETOH level down to acceptable level for contact with [facility]. snw 03:10 Other consultation: [facility] in with patient. snw 03:16 Transition of care: After a detail discussion of the patient's case, care is snw transferred to Bobby Fisher MD. 04:15 ED course: seen by MAT team. deem appropriate for out pt f/u. MAT discussed with pt and wa family and gave out-pt f/u. thery agreed and plan to f/u as discussed. 08/17 19:29 Order name: Acetaminophen; Complete Time: 20:28 ps1 08/17 19:29 Order name: Basic Metabolic Panel; Complete Time: 20:28 ps1 08/17 19:29 Order name: CBC with Diff; Complete Time: 20:27 ps1 08/17 19:29 Order name: ETOH Level; Complete Time: 20:27 ps1 08/17 19:29 Order name: Hepatic Function; Complete Time: 20:28 ps1 08/17 19:29 Order name: PT-INR; Complete Time: 20:33 ps1 08/17 19:29 Order name: Ptt, Activated; Complete Time: 20:33 ps1 08/17 19:29 Order name: Salicylate; Complete Time: 20:59 ps1 08/17 19:29 Order name: Urine Drug Screen; Complete Time: 20:52 ps1 08/17 19:29 Order name: EKG; Complete Time: 19:30 [facility] 08/17 20:12 Order name: Urine Dipstick--Ancillary (enter results); Complete Time: 20:22 2 08/18 00:15 Order name: ETOH Level; Complete Time: 00:56 tr5 08/17 19:29 Order name: EKG - Nurse/Tech; Complete Time: 20:11 ps1 08/17 19:29 Order name: IV Saline Lock; Complete Time: 19:54 [facility] 08/17 19:29 Order name: Labs collected and sent; Complete Time: 19:54 [facility] 08/17 19:29 Order name: Urine Dipstick-Ancillary (obtain specimen); Complete Time: 20:10 [facility] 08/18 00:57 Order name: consult Order-[facility] snw Administered Medications: 08/17 21:53 Drug: NS 0.9% 1000 ml Route: IV; Rate: 1 bolus; Site: left antecubital; tr5 08/18 04:38 Follow up: Response: No adverse reaction; IV Status: Completed infusion 03:30 Drug: cloNIDine 0.1 mg Route: PO; 04:19 Follow up: Response: No adverse reaction Disposition: 08/18/19 04:17 Discharged to Home. Impression: Suicidal ideations. - Condition is Stable. - Discharge Instructions: Suicidal Feelings: How to Help Yourself, Helping Someone Who is Suicidal. - Medication Reconciliation Form, Thank You Letter, Antibiotic Education, Prescription Opioid Use form. - Follow up: Private Physician; When: 1 - 2 days; Reason: Recheck today's complaints. - Problem is new. - Symptoms have improved. - Notes: follow up with psychiatry team as planned for you. return here immediately for any feeling of suicidality and or new worrisome concerns Addendum: 08/19/2019 20:52 Co-signature as Attending Physician, Jose Chavez MD I agree with the assessment and p s1 plan of care. Signatures: Dispatcher [employer] Francoise Varghese RN RN aa1 Carmita Caballero, DRILLING PLANT OPERATOR-C DRILLING PLANT OPERATOR-Csnw Cristian Ugalde Bobby Fisher MD MD wa Singer, Phillip, MD MD ps1 Balbir Bains, RN RN tr5 Corrections: (The following items were deleted from the chart) 08/18 04:38 04:17 08/18/2019 04:17 Discharged to Home. Impression: Suicidal ideations. Condition is wh Stable. Forms are Medication Reconciliation Form, Thank You Letter, Antibiotic Education, Prescription Opioid Use. Follow up: Private Physician; When: 1 - 2 days; Reason: Recheck today's complaints. Problem is new. Symptoms have improved. wa
[2019-08-18 05:02] VITALS: TEMP 96.7; O2SAT 99
[2019-08-18 05:08] VITALS: BP 127/84
--- NOTE | 2019-08-18 06:02 | EKG ---
Test Date: 2019-08-17 Test Time: 20:02:24 Motor And Generator Brush Cutter: JULIETTE MEASUREMENT RESULTS: Intervals: Rate: 70 VT: 130 QRSD: 90 QT: 380 QTc: 410 [place]: P: 57 VT: 130 QRS: 99 T: 50 INTERPRETIVE STATEMENTS: Normal sinus rhythm Possible Left atrial enlargement Rightward axis Borderline ECG Compared to ECG 01/06/2019 02:14:04 No significant changes Electronically Signed On 08-18-19 06:00:55 WASHING MACHINE MECHANIC by Rojas Cordon
== END 2019-08-18 04:38 | disposition home or self-care (01) ==
LOC: ER 19:15
DX: S41.112A Laceration without foreign body of left upper arm, initial encounter (principal); S41.111A Laceration without foreign body of right upper arm, initial encounter; X78.9XXA Intentional self-harm by unspecified sharp object, initial encounter; Y93.9 Activity, unspecified; Y92.9 Unspecified place or not applicable; Z87.820 Personal history of traumatic brain injury; F17.210 Nicotine dependence, cigarettes, uncomplicated; I10 Essential (primary) hypertension; F32.9 Major depressive disorder, single episode, unspecified
CPT/HCPCS: 96361; 93005; 85025; 80048; 36415; 80320 ×2; 80329 ×2; 85610; 80076; 80307 ×8; 85730; 81003; 96360; 99284; J7030

== ENCOUNTER 2019-10-09 00:18 | Inpatient (IN) | payer OTHER ==
[2019-10-09] MEDS ORDERED: NA CHLORIDE 0.9% 2,000 ML ONE (00:45)
[2019-10-09 00:53] LABS: Basophils % 0.7 % (0-1.3); Hematocrit 40.6 % (39.6-49.0); Lymphocytes % 19.9 % (15.3-44.8); MPV 10.3 fL (7.6-11.3)
[2019-10-09 00:57] LABS: Protime INR 0.96
[2019-10-09 01:01] LABS: Barbiturates NEGATIVE (NEGATIVE); Benzodiazepines NEGATIVE (NEGATIVE); Cocaine NEGATIVE (NEGATIVE); METHAMPHETAM NEGATIVE (NEGATIVE); Methadone NEGATIVE (NEGATIVE); Opiates NEGATIVE (NEGATIVE); Phencyclidine NEGATIVE (NEGATIVE); THC Cannibis NEGATIVE (NEGATIVE)
[2019-10-09 01:16] LABS: ALT/SGPT 24 U/L (12-78); AST/SGOT 22 U/L (15-37); Albumin 3.7 g/dL (3.4-5.0); Alkaline Phosphatase 64 U/L (45-117); BUN Blood Urea Nitrogen 18 mg/dL (7-18); Bicarbonate 25 mmol/L (21-32); Bilirubin Direct < 0.1 mg/dL (0-0.2); Bilirubin Total 0.3 mg/dL (0.2-1.0); Glucose Level 83 mg/dL (74-106); Potassium 3.2 mmol/L (3.5-5.1); Protein, Total 6.8 g/dL (6.4-8.2); Sodium Level 141 mmol/L (136-145)
[2019-10-09 01:28] LABS: Urine Blood NEGATIVE (NEG); Urine Glucose NEGATIVE (NEG); Urine Protein NEGATIVE (NEG); Urine Specific Gravity <1.005 (1.005-1.030); Urine pH 5.5 (5.0-7.0)
[2019-10-09] MEDS ORDERED: NA CHLORIDE 0.9% 1,000 ML ONE ×2 (03:36→08:01)
[2019-10-09] MEDS ORDERED: LORazepam 2 MG/ML VIAL ONE ×4 (03:36→17:12)
[2019-10-09] MEDS ORDERED: KCL 20 MEQ/100 mL IVPB 20 MEQ/100 ML BAG IV ONE (03:57)
[2019-10-09] MEDS ORDERED: DIAZEPAM 10 MG/2 ML INJ SYRINGE ONE (04:56)
--- NOTE | 2019-10-09 05:40 | ER ---
Nurse's Notes [facility] Name: Mahendra Xie Age: 33 yrs Sex: Male : 1985 Arrival Date: 10/09/2019 Time: 00:29 Bed 2 Private MD: Diagnosis: Seroquel Overdose (4.5 gms) Presentation: 10/09 00:30 Presenting complaint: EMS states: they were toned out for report of pt having overdosed bb on Seroquel 100 mg he took 45. Pt is suicidal states "I'm tired of it and my medication is not working". Transition of care: patient was not received from another setting of care. Onset of symptoms was October 09, 2019. Risk Assessment: Do you want to hurt yourself or someone else? Patient reports desire/thoughts of hurting themselves or someone else. Provider notified. Initial Sepsis Screen: Does the patient meet any 2 criteria? No. Patient's initial sepsis screen is negative. Does the patient have a suspected source of infection? No. Patient's initial sepsis screen is negative. Care prior to arrival: None. 00:30 Method Of Arrival: EMS: [facility] bb 00:30 Acuity: SERENA 2 bb Historical: - Allergies: 00:35 No Known Allergies; bb - Home Meds: 00:35 hydrochlorothiazide 25 mg Oral tab once daily [Active]; Seroquel Oral [Active]; bb lorazapam [Active]; Fluoxetine Oral [Active]; - PMHx: 00:35 Anxiety; Bronchitis; Chronic pain; Depression; Hypertension; Migraines; Suicide bb Attempts; TBI; - PSHx: 00:35 leg surgery; Cholecystectomy; bb - Immunization history:: Adult Immunizations unknown. - Coronavirus screen:: The patient has NOT traveled to [place], [place], or [place] in the past 14 days. Proceed with normal triage process as indicated. - Social history:: Smoking status: Patient reports the use of cigarette tobacco products, smokes one pack cigarettes per day. Patient uses alcohol, patient/guardian reports recent binge of alcohol consumption. - Ebola Screening: : No symptoms or risks identified at this time. Screenin:38 Abuse screen: Denies threats or abuse. Nutritional screening: No deficits noted. jd3 Tuberculosis screening: No symptoms or risk factors identified. Fall Risk IV access (20 points). Ambulatory Aid- None/Bed Rest/Nurse Assist (0 pts). Gait- Normal/Bed Rest/Wheelchair (0 pts) Mental Status- Oriented to own ability (0 pts). Total Razo Fall Scale indicates No Risk (0-24 pts). Assessment: 00:39 General: Appears in no apparent distress. comfortable, Behavior is calm, cooperative, jd3 appropriate for age, drowsy. Pain: Complains of pain in left shoulder Quality of pain is described as aching, Is chronic. Neuro: Level of Consciousness is awake, obeys commands, drowsy. Oriented to person, place, time, situation, Speech is slurred. Cardiovascular: Capillary refill < 3 seconds Patient's skin is warm and dry. Rhythm is regular. Respiratory: Airway is patent Respiratory effort is even, unlabored, Respiratory pattern is regular, symmetrical, Denies cough, shortness of breath. GI: No signs and/or symptoms were reported involving the gastrointestinal system. Abdomen is round non-distended, Patient currently denies diarrhea, nausea, vomiting. : No signs and/or symptoms were reported regarding the genitourinary system. EENT: No signs and/or symptoms were reported regarding the EENT system. Derm: Skin is intact, Skin is dry, Skin is normal, Skin temperature is warm. Musculoskeletal: Circulation, motion, and sensation intact. Range of motion: intact in all extremities. 00:44 Reassessment: spoke to Poison Control who recommends watching for anticholinergic jd3 effects, seizures give benzos if pt is symptomatic otherwise recommended care symptomatic, supportive care for 6 to 12 hours depending is it is extended release or not. Pt should have psychiatric evaluation after medically clear. 01:30 Reassessment: Patient appears in no apparent distress at this time. No changes from jd3 previously documented assessment. Patient and/or family updated on plan of care and expected duration. Pain level reassessed. pt resting in bed with eyes closed, even and unlabored respirations. sitter at bedside. no distress noted at this time. 02:30 Reassessment: Patient appears in no apparent distress at this time. No changes from jd3 previously documented assessment. Patient and/or family updated on plan of care and expected duration. Pain level reassessed. 03:30 Reassessment: Patient appears in no apparent distress at this time. Patient and/or jd3 family updated on plan of care and expected duration. Pain level reassessed. pt sleeping restlessly. sitter at bedside. pt with eyes closed, even and unlabored respirations. pt tossing at turning in his sleep, appears restless, provider notified. will continue to monitor. 04:21 Reassessment: Patient appears in no apparent distress at this time. Patient and/or jd3 family updated on plan of care and expected duration. Pain level reassessed. pt becoming more restless. pt resting with eyes closed. no distress noted. provider notified, new orders received. sitter at bedside. will continue to monitor. pt placed on supplemental O2 for lower oxygen level of 90% room air. 04:58 Reassessment: No changes from previously documented assessment. Patient and/or family jd3 updated on plan of care and expected duration. Pain level reassessed. pt becoming more restless, provider notified. even and unlabored respirations. medication order received. will continue to monitor. 05:48 Reassessment: Poison control called for update on pt status; recommend giving aa1 additional 2 mg Ativan IVP due to pt's tachycardia. MD notified. 05:58 Reassessment: Patient appears in no apparent distress at this time. No changes from jd3 previously documented assessment. Patient and/or family updated on plan of care and expected duration. Pain level reassessed. pt appears less restless. pt resting with eyes closed, even and unlabored respirations. IV in place with fluids flowing at ordered rates. IV site is clean and dry with dressing intact, no redness or swelling noted. sitter at bedside. 06:26 Reassessment: Patient appears in no apparent distress at this time. No changes from jd3 previously documented assessment. Patient and/or family updated on plan of care and expected duration. Pain level reassessed. 07:20 General: Appears in no apparent distress. comfortable, Behavior is calm, drowsy. em Cardiovascular: Capillary refill Patient's skin is warm and dry. Rhythm is sinus tachycardia. Respiratory: Airway is patent Respiratory effort is even, unlabored, Respiratory pattern is regular, symmetrical. Derm: Skin is intact, is healthy with good turgor, Skin is pink, warm \\T\\ dry. 15:10 Reassessment: report given to DAYANARA Hyde. em Psych: 00:41 Subjective: Patient's mood is sad, Delusions are denied, Hallucinations are denied jd3 Having thoughts of suicide. Plan for suicide is overdose. Objective: Patient is cooperative, Speech is slurred, Affect is appropriate. Interventions: Removed personal items and placed in bag. Patient placed in hospital gown. Searched person for dangerous items. Urine collected and sent for urine drug test. Belonging list filled out. Suicide Risk Assessment: Sad Person Scale: Sex of patient: Male: Score 1 point. Age of patient: Score 1 point if patient 15-34. Depression: Score 1 point if signs of depression are present. Previous Attempt: Score 1 point if patient has previously attempted suicide. Substance Abuse: Score 1 point if patient abuses alcohol or drugs. Rational Thinking: Score 1 point if patient is lacking rational thinking. Social Support: Score 1 point if social support is lacking and/or unavailable. Organized Plan: Score 1 point if patient had a plan in place. Relationship: Score 1 point if patient is , , , or for a single male Chronic Sickness: Score 0 point if patient does not have a chronic illness, debilitating, or severe disorder. TOTAL POINTS: If total points are 7-10, the proposed clinical action is to hospitalize or commit. Implement suicide precautions. Safety Checks: Personal items have been removed. Door is open. No visitors are present at this time. sitter at bedside. Patient uses of alcohol. Vital Signs: 00:35 BP 136 / 83; Pulse 104; Resp 16 S; Temp 97.6(O); Pulse Ox 94% on R/A; Weight 99.79 kg bb (R); Height 6 ft. 0 in. (182.88 cm) (R); 03:15 BP 136 / 81; Pulse 146; Resp 17; Pulse Ox 97% on R/A; oe 03:40 BP 150 / 92; Pulse 142; Resp 19 S; Pulse Ox 97% on R/A; jd3 03:44 Pulse 126; jd3 04:21 BP 148 / 88; Pulse 137; Resp 16 S; Pulse Ox 97% on 2 lpm NC; jd3 04:59 BP 111 / 82; Pulse 155; Resp 20 S; Pulse Ox 100% on 2 lpm NC; jd3 05:59 BP 143 / 92; Pulse 133; Resp 19 S; Pulse Ox 96% on 2 lpm NC; jd3 06:26 BP 147 / 101; Pulse 136; Resp 18 S; Pulse Ox 97% on 2 lpm NC; jd3 07:00 BP 153 / 96; Pulse 134; Resp 17; Pulse Ox 96% on NC; oe 00:35 Body Mass Index 29.84 (99.79 kg, 182.88 cm) bb David Coma Score: 00:40 Eye Response: spontaneous(4). Verbal Response: oriented(5). Motor Response: obeys jd3 commands(6). Total: 15. 03:30 Eye Response: to pain(2). Verbal Response: oriented(5). Motor Response: localizes jd3 pain(5). Total: 12. 05:30 Eye Response: to pain(2). Verbal Response: oriented(5). Motor Response: localizes jd3 pain(5). Total: 12. ED Course: 00:28 Aaron Fields MD is Attending Physician. kdr 00:29 Patient arrived in ED. bb 00:33 Triage completed. bb 00:35 Arm band placed on Patient placed in an exam room, on a stretcher, on motion and time study teacher, bb on pulse oximetry. EKG completed in triage. Results shown to MD. 00:38 Maintain EMS IV. Dressing intact. Good blood return noted. Site clean \\T\\ dry. Gauge \\T\\ larry 3 site: 18 G to right AC.. 00:39 Angel Ibrahim RN is Primary Nurse. jd3 00:44 Patient has correct armband on for positive identification. Placed in gown. Bed in low jd3 position. Side rails up X2. Valuables inventory done. Locked in safe. See valuables checklist. belongings sent with security. 00:44 Initial lab(s) drawn, by ED staff, sent to lab. Urine collected: clean catch specimen, jd3 clear, EKG done, by ED staff, reviewed by Aaron Fields MD. 05:37 Shauna Mason MD is Hospitalizing Provider. kdr 06:02 No provider procedures requiring assistance completed. Patient admitted, IV remains in jd3 place. Administered Medications: 00:45 Drug: NS 0.9% 1000 ml Route: IV; Rate: 1 bolus; Site: right antecubital; aa1 03:42 Follow up: Response: No adverse reaction; IV Status: Completed infusion; IV Intake: jd3 1000ml 00:46 Drug: NS 0.9% 1000 ml Route: IV; Rate: 125 ml/hr; Site: right antecubital; aa1 05:54 Follow up: Response: No adverse reaction; IV Status: Infusion continued upon admission jd3 03:42 Drug: NS 0.9% 1000 ml Route: IV; Rate: 1 bolus; Site: right antecubital; jd3 05:53 Follow up: Response: No adverse reaction; IV Status: Completed infusion; IV Intake: jd3 1000ml 03:42 Drug: Ativan 0.5 mg Route: IVP; Site: right antecubital; jd3 04:40 Follow up: Response: No adverse reaction jd3 03:56 Drug: Potassium Chloride 20 mEq Route: IV; Rate: calculated rate; Site: right jd3 antecubital; 06:38 Follow up: Response: No adverse reaction; IV Status: Completed infusion jd3 04:28 Drug: Ativan 1 mg Route: IVP; Site: right antecubital; jd3 05:25 Follow up: Response: No adverse reaction jd3 05:01 Drug: Valium 5 mg Route: IVP; Site: right antecubital; jd3 05:57 Follow up: Response: No adverse reaction jd3 05:48 Drug: Ativan 2 mg Route: IVP; Site: right antecubital; aa1 05:58 Follow up: Response: No adverse reaction jd3 Intake: 03:42 IV: 1000ml; Total: 1000ml. jd3 05:53 IV: 1000ml; Total: 2000ml. jd3 Outcome: 05:39 Decision to Hospitalize by Provider. kdr 07:40 Admitted to ICU em 07:40 Condition: good 07:40 Instructed on the need for admit. 15:46 Patient left the ED. em Signatures: Francoise Rodriguez RN RN aa1 Aaron Fields MD MD kdr Munoz, Edgar, RN RN em Keeley Araujo RN RN bb Tyler Turner Jonathon, RN RN jd3 Corrections: (The following items were deleted from the chart) 01:43 01:42 Reassessment: Patient appears in no apparent distress at this time. No changes jd3 from previously documented assessment. Patient and/or family updated on plan of care and expected duration. Pain level reassessed. Patient is alert, oriented x 3, equal unlabored respirations, skin warm/dry/pink. pt resting in bed with eyes closed, even and unlabored respirations. sitter at bedside. no distress noted at this time. jd3 03:43 03:42 BP 150 / 92; Pulse 145bpm; Resp 19bpm; Spontaneous; Pulse Ox 97% RA; jd3 jd3 03:44 03:42 BP 150 / 92; Pulse 139bpm; Resp 19bpm; Spontaneous; Pulse Ox 97% RA; jd3 jd3 03:44 03:40 Pulse 126bpm; jd3 jd3 04:23 04:21 Reassessment: Patient appears in no apparent distress at this time. No changes jd3 from previously documented assessment. Patient and/or family updated on plan of care and expected duration. Pain level reassessed. Patient is alert, oriented x 3, equal unlabored respirations, skin warm/dry/pink. jd3 04:24 04:21 Reassessment: Patient appears in no apparent distress at this time. Patient jd3 and/or family updated on plan of care and expected duration. Pain level reassessed. Patient is alert, oriented x 3, equal unlabored respirations, skin warm/dry/pink. pt becoming more restless. pt resting with eyes closed. no distress noted. jd3 04:27 04:21 Reassessment: Patient appears in no apparent distress at this time. Patient jd3 and/or family updated on plan of care and expected duration. Pain level reassessed. Patient is alert, oriented x 3, equal unlabored respirations, skin warm/dry/pink. pt becoming more restless. pt resting with eyes closed. no distress noted. jd3 04:31 04:21 Reassessment: Patient appears in no apparent distress at this time. Patient jd3 and/or family updated on plan of care and expected duration. Pain level reassessed. Patient is alert, oriented x 3, equal unlabored respirations, skin warm/dry/pink. pt becoming more restless. pt resting with eyes closed. no distress noted. provider notified, new orders received. jd3 04:59 00:44 Reassessment: spoke to Poison Control who recommends watching for anticholinergic jd3 effects, seizures give benzos if pt is symptomatic otherwise recommended care symptomatic, supportive care for 6 to 12 hours depending is it is extended release or not. Pt should have psychiatric evaluation after medically clear bb 04:59 01:30 Reassessment: Patient appears in no apparent distress at this time. No changes jd3 from previously documented assessment. Patient and/or family updated on plan of care and expected duration. Pain level reassessed. Patient is alert, oriented x 3, equal unlabored respirations, skin warm/dry/pink. pt resting in bed with eyes closed, even and unlabored respirations. sitter at bedside. no distress noted at this time. jd3 05: 04:21 BP 148 / 88; Pulse 137bpm; Resp 16bpm; Spontaneous; Pulse Ox 97% RA; jd3 jd3 05:06 04:59 Pulse 155bpm; Resp 20bpm; Spontaneous; Pulse Ox 100% 2 lpm Nasal Cannula; jd3 jd3 05:06 04:58 Reassessment: pt becoming more restless, provider notified. even and unlabored jd3 respirations. medication order received. jd3 : 01:30 Reassessment: Patient appears in no apparent distress at this time. No changes jd3 from previously documented assessment. Patient and/or family updated on plan of care and expected duration. Pain level reassessed. Patient is alert, oriented x 3, equal unlabored respirations, skin warm/dry/pink. pt resting in bed with eyes closed, even and unlabored respirations. sitter at bedside. no distress noted at this time. jd3 05:07 02:30 Reassessment: Patient appears in no apparent distress at this time. No changes jd3 from previously documented assessment. Patient and/or family updated on plan of care and expected duration. Pain level reassessed. Patient is alert, oriented x 3, equal unlabored respirations, skin warm/dry/pink. jd3 05:07 03:30 Reassessment: Patient appears in no apparent distress at this time. Patient jd3 and/or family updated on plan of care and expected duration. Pain level reassessed. Patient is alert, oriented x 3, equal unlabored respirations, skin warm/dry/pink. pt sleeping restlessly. sitter at bedside. pt with eyes closed, even and unlabored respirations. pt tossing at turning in his sleep. jd3 : 04:21 Reassessment: Patient appears in no apparent distress at this time. Patient jd3 and/or family updated on plan of care and expected duration. Pain level reassessed. Patient is alert, oriented x 3, equal unlabored respirations, skin warm/dry/pink. pt becoming more restless. pt resting with eyes closed. no distress noted. provider notified, new orders received. sitter at bedside. jd3 05:07 04:58 Reassessment: No changes from previously documented assessment. Patient and/or jd3 family updated on plan of care and expected duration. Pain level reassessed. pt becoming more restless, provider notified. even and unlabored respirations. medication order received. jd3 05:12 03:30 Reassessment: Patient appears in no apparent distress at this time. Patient jd3 and/or family updated on plan of care and expected duration. Pain level reassessed. pt sleeping restlessly. sitter at bedside. pt with eyes closed, even and unlabored respirations. pt tossing at turning in his sleep. jd3 05:12 04:21 Reassessment: Patient appears in no apparent distress at this time. Patient jd3 and/or family updated on plan of care and expected duration. Pain level reassessed. pt becoming more restless. pt resting with eyes closed. no distress noted. provider notified, new orders received. sitter at bedside. jd3 05:12 04:58 Reassessment: No changes from previously documented assessment. Patient and/or jd3 family updated on plan of care and expected duration. Pain level reassessed. pt becoming more restless, provider notified. even and unlabored respirations. medication order received. jd3 05:16 03:30 Reassessment: Patient appears in no apparent distress at this time. Patient jd3 and/or family updated on plan of care and expected duration. Pain level reassessed. pt sleeping restlessly. sitter at bedside. pt with eyes closed, even and unlabored respirations. pt tossing at turning in his sleep. will continue to monitor. jd3 05:17 04:21 Reassessment: Patient appears in no apparent distress at this time. Patient jd3 and/or family updated on plan of care and expected duration. Pain level reassessed. pt becoming more restless. pt resting with eyes closed. no distress noted. provider notified, new orders received. sitter at bedside. will continue to monitor jd3 06:02 05:58 Reassessment: Patient appears in no apparent distress at this time. No changes jd3 from previously documented assessment. Patient and/or family updated on plan of care and expected duration. Pain level reassessed. pt appears less restless. jd3 06:26 05:58 Reassessment: Patient appears in no apparent distress at this time. No changes jd3 from previously documented assessment. Patient and/or family updated on plan of care and expected duration. Pain level reassessed. pt appears less restless. pt resting with eyes closed, even and unlabored respirations. IV in place with fluids flowing at ordered rates. IV site is clean and dry with dressing intact, no redness or swelling noted. sitter at bedside. charting continued in [facility]. [facility] 06:38 05:55 Response: No adverse reaction; IV Status: Infusion continued upon admission [facility] jd3 56 06:02 Condition: stable [place] [id number] 06:02 Instructed on the need for admit, [facility] jd3 56 06:02 Admitted to ER Hold. Please see [facility] for further documentation. [facility] j
--- NOTE | 2019-10-09 05:40 | EDPHYS ---
Physician Documentation [facility] Name: Mahendra Xie Age: 33 yrs Sex: Male : 1985 Arrival Date: 10/09/2019 Time: 00:29 Bed 2 Private MD: ED Physician Aaron Fields HPI: 10/09 00:37 This 33 yrs old Male presents to ER via EMS with complaints of seroquel kdr overdose. 00:37 The patient presents to the emergency department with depression, a history of kdr substance abuse, Type: beer, a history of a suicide gesture, where the patient took pills/medications, Seroquel. Onset: The symptoms/episode began/occurred gradually. Past psychiatric history: Prior diagnosis: depression, Psychiatric medications include:. Associated signs and symptoms: The patient has no apparent associated signs or symptoms. Severity of symptoms: At their worst the symptoms were moderate in the emergency department the symptoms are unchanged. The patient has experienced similar episodes in the past, chronically. It is unknown whether or not the patient has recently seen a physician. 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 He has also been drinking "[place]" Beer.. Historical: - Allergies: 00:35 No Known Allergies; bb - Home Meds: 00:35 hydrochlorothiazide 25 mg Oral tab once daily [Active]; Seroquel Oral [Active]; bb lorazapam [Active]; Fluoxetine Oral [Active]; - PMHx: 00:35 Anxiety; Bronchitis; Chronic pain; Depression; Hypertension; Migraines; Suicide bb Attempts; TBI; - PSHx: 00:35 leg surgery; Cholecystectomy; bb - Immunization history:: Adult Immunizations unknown. - Coronavirus screen:: The patient has NOT traveled to [place], [place], or [place] in the past 14 days. Proceed with normal triage process as indicated. - Social history:: Smoking status: Patient reports the use of cigarette tobacco products, smokes one pack cigarettes per day. Patient uses alcohol, patient/guardian reports recent binge of alcohol consumption. - Ebola Screening: : No symptoms or risks identified at this time. ROS: 00:37 Constitutional: Negative for fever, chills, and weight loss, Eyes: Negative for injury, kdr pain, redness, and discharge, ENT: Negative for injury, pain, and discharge, Neck: Negative for injury, pain, and swelling, Cardiovascular: Negative for chest pain, palpitations, and edema, Respiratory: Negative for shortness of breath, cough, wheezing, and pleuritic chest pain, Abdomen/GI: Negative for abdominal pain, nausea, vomiting, diarrhea, and constipation, Back: Negative for injury and pain, : Negative for injury, bleeding, discharge, and swelling, MS/Extremity: Negative for injury and deformity, Skin: Negative for injury, rash, and discoloration, Psych: Negative for depression, anxiety, suicide ideation, homicidal ideation, and hallucinations, Allergy/Immunology: Negative for hives, rash, and allergies, Endocrine: Negative for neck swelling, polydipsia, polyuria, polyphagia, and marked weight changes, Hematologic/Lymphatic: Negative for swollen nodes, abnormal bleeding, and unusual bruising. 00:37 Neuro: Positive for altered mental status, weakness. 00:37 Psych: Positive for depression, suicide gesture, suicidal ideation. Exam: 00:37 Constitutional: This is a well developed, well nourished patient who is somnolent but kdr in no acute distress. Head/Face: Normocephalic, atraumatic. Eyes: Pupils equal round and reactive to light, extra-ocular motions intact. Lids and lashes normal. Conjunctiva and sclera are non-icteric and not injected. Cornea within normal limits. Periorbital areas with no swelling, redness, or edema. Neck: Trachea midline, no thyromegaly or masses palpated, and no cervical lymphadenopathy. Supple, full range of motion without nuchal rigidity, or vertebral point tenderness. No Meningismus. Chest/axilla: Normal chest wall appearance and motion. Nontender with no deformity. No lesions are appreciated. Cardiovascular: Regular rate and rhythm with a normal S1 and S2. No gallops, murmurs, or rubs. Normal PMI, no JVD. No pulse deficits. Respiratory: Lungs have equal breath sounds bilaterally, clear to auscultation and percussion. No rales, rhonchi or wheezes noted. No increased work of breathing, no retractions or nasal flaring. Abdomen/GI: Soft, non-tender, with normal bowel sounds. No distension or tympany. No guarding or rebound. No evidence of tenderness throughout. Back: No spinal tenderness. No costovertebral tenderness. Full range of motion. Skin: Warm, dry with normal turgor. Normal color with no rashes, no lesions, and no evidence of cellulitis. MS/ Extremity: Pulses equal, no cyanosis. Neurovascular intact. Full, normal range of motion. Neuro: Awake and alert, GCS 15, oriented to person, place, time, and situation. Cranial nerves II-XII grossly intact. Motor strength 5/5 in all extremities. Sensory grossly intact. Cerebellar exam normal. Normal gait. 00:37 Psych: Behavior/mood is cooperative, suicidal, depressed, Affect is flat, Oriented to person, place, Patient having thoughts of suicide. Plan for suicide is OD Delusions/hallucinations are not present. Vital Signs: 00:35 BP 136 / 83; Pulse 104; Resp 16 S; Temp 97.6(O); Pulse Ox 94% on R/A; Weight 99.79 kg bb (R); Height 6 ft. 0 in. (182.88 cm) (R); 03:15 BP 136 / 81; Pulse 146; Resp 17; Pulse Ox 97% on R/A; oe 03:40 BP 150 / 92; Pulse 142; Resp 19 S; Pulse Ox 97% on R/A; jd3 03:44 Pulse 126; jd3 04:21 BP 148 / 88; Pulse 137; Resp 16 S; Pulse Ox 97% on 2 lpm NC; jd3 04:59 BP 111 / 82; Pulse 155; Resp 20 S; Pulse Ox 100% on 2 lpm NC; jd3 05:59 BP 143 / 92; Pulse 133; Resp 19 S; Pulse Ox 96% on 2 lpm NC; jd3 06:26 BP 147 / 101; Pulse 136; Resp 18 S; Pulse Ox 97% on 2 lpm NC; jd3 07:00 BP 153 / 96; Pulse 134; Resp 17; Pulse Ox 96% on NC; oe 00:35 Body Mass Index 29.84 (99.79 kg, 182.88 cm) bb [place] Coma Score: 00:40 Eye Response: spontaneous(4). Verbal Response: oriented(5). Motor Response: obeys jd3 commands(6). Total: 15. 03:30 Eye Response: to pain(2). Verbal Response: oriented(5). Motor Response: localizes jd3 pain(5). Total: 12. 05:30 Eye Response: to pain(2). Verbal Response: oriented(5). Motor Response: localizes jd3 pain(5). Total: 12. MDM: 05:39 Patient medically screened. kdr 05:39 Data reviewed: vital signs, nurses notes, lab test result(s), EKG, radiologic studies. kdr Counseling: I had a detailed discussion with the patient and/or guardian regarding: the historical points, exam findings, and any diagnostic results supporting the discharge/admit diagnosis, lab results, the need for further work-up and treatment in the hospital. Physician consultation: Shauna Mason MD. 05:40 ED course: The patient was not lavaged since the ingestion time was greater than one kdr hour. The patient was not given charcoal due to concern for his airway protection.. 10/09 00:31 Order name: Acetaminophen; Complete Time: 03:45 kdr 10/09 00:31 Order name: Basic Metabolic Panel; Complete Time: 03:45 kdr 10/09 00:31 Order name: CBC with Diff; Complete Time: 03:45 kdr 10/09 00:31 Order name: ETOH Level; Complete Time: 03:45 kdr 10/09 00:31 Order name: Hepatic Function; Complete Time: 03:45 kdr 10/09 00:31 Order name: PT-INR; Complete Time: 03:45 kdr 10/09 00:31 Order name: Ptt, Activated; Complete Time: 03:45 kdr 10/09 00:31 Order name: Salicylate; Complete Time: 03:45 kdr 10/09 00:31 Order name: Urine Drug Screen; Complete Time: 03:45 [facility] 10/09 00:38 Order name: Urine Dipstick--Ancillary (enter results); Complete Time: 03:45 2 10/09 06:46 Order name: Comprehensive Metabolic Panel [facility] 10/09 06:46 Order name: Comprehensive Metabolic Panel [facility] 10/09 09:26 Order name: ABG Arterial Blood Gas [facility] 10/09 14:05 Order name: Glucose, Ancillary Testing [facility] 10/09 00:31 Order name: EKG; Complete Time: 00:32 kdr 10/09 00:31 Order name: EKG - Nurse/Tech; Complete Time: 00:35 kdr 10/09 00:31 Order name: IV Saline Lock; Complete Time: 00:35 kdr 10/09 00:31 Order name: Labs collected and sent; Complete Time: 00:35 kdr 10/09 00:31 Order name: Urine Dipstick-Ancillary (obtain specimen); Complete Time: 00:36 kdr 10/09 06:47 Order name: Regular EDMS EC:37 Rate is 98 beats/min. Rhythm is regular, Normal Sinus Rhythm with No ectopy. QRS [place] kdr is Normal. Right axis deviation noted. DC interval is normal. Clinical impression: NSR w/ Non-specific ST/T Changes. Administered Medications: 00:45 Drug: NS 0.9% 1000 ml Route: IV; Rate: 1 bolus; Site: right antecubital; aa1 03:42 Follow up: Response: No adverse reaction; IV Status: Completed infusion; IV Intake: jd3 1000ml 00:46 Drug: NS 0.9% 1000 ml Route: IV; Rate: 125 ml/hr; Site: right antecubital; aa1 05:54 Follow up: Response: No adverse reaction; IV Status: Infusion continued upon admission jd3 03:42 Drug: NS 0.9% 1000 ml Route: IV; Rate: 1 bolus; Site: right antecubital; jd3 05:53 Follow up: Response: No adverse reaction; IV Status: Completed infusion; IV Intake: jd3 1000ml 03:42 Drug: Ativan 0.5 mg Route: IVP; Site: right antecubital; jd3 04:40 Follow up: Response: No adverse reaction jd3 03:56 Drug: Potassium Chloride 20 mEq Route: IV; Rate: calculated rate; Site: right [facility] antecubital; 06:38 Follow up: Response: No adverse reaction; IV Status: Completed infusion jd3 04:28 Drug: Ativan 1 mg Route: IVP; Site: right antecubital; jd3 05:25 Follow up: Response: No adverse reaction jd3 05:01 Drug: Valium 5 mg Route: IVP; Site: right antecubital; jd3 05:57 Follow up: Response: No adverse reaction jd3 05:48 Drug: Ativan 2 mg Route: IVP; Site: right antecubital; aa1 05:58 Follow up: Response: No adverse reaction jd3 Disposition: 10/09/19 05:39 Hospitalization ordered by Shauna Mason for Inpatient Admission. Preliminary diagnosis is Seroquel Overdose (4.5 gms). - Bed requested for Intensive Care Unit. - Status is Inpatient Admission. em - Condition is Serious. - Problem is new. - Symptoms are unchanged. UTI on Admission? No Signatures: Dispatcher [employer] EDMS Cecille Sood, RN DAYANARA [place] RN RN Francoise Ramirez RN DAYANARA aa1 Aaron Fields MD MD kdr Munoz, Edgar RN DAYANARA em Keeley Araujo RN Angel Sommer RN RN jd3 Corrections: (The following items were deleted from the chart) 05:44 05:39 Hospitalization Ordered by Shauna Mason MD for Inpatient Admission. Preliminary diagnosis is Seroquel Overdose (4.5 gms). Bed requested for Intensive Care Unit. Status is Inpatient Admission. Condition is Serious. Problem is new. Symptoms are unchanged. UTI on Admission? No. kdr 05:53 05:37 Misc. Order ordered. kdr jd3 14:20 05:44 10/09/2019 05:39 Hospitalization Ordered by Shauna Mason MD for Inpatient dw Admission. Preliminary diagnosis is Seroquel Overdose (4.5 gms). Bed requested for [facility] ER HOLD. Status is Inpatient Admission. Condition is Serious. Problem is new. Symptoms are unchanged. UTI on Admission? No. mw 15:06 14:20 10/09/2019 05:39 Hospitalization Ordered by Shauna Mason MD for Inpatient dw Admission. Preliminary diagnosis is Seroquel Overdose (4.5 gms). Bed requested for Intensive Care Unit. Status is Inpatient Admission. Condition is Serious. Problem is new. Symptoms are unchanged. UTI on Admission? No. dw 15:46 15:06 10/09/2019 05:39 Hospitalization Ordered by Shauna Mason MD for Inpatient em Admission. Preliminary diagnosis is Seroquel Overdose (4.5 gms). Bed requested for Intensive Care Unit. Status is Inpatient Admission. Condition is Serious. Problem is new. Symptoms are unchanged. UTI on Admission? No. dw
[2019-10-09] MEDS ORDERED: ALBUTEROL 2.5 MG/3 ML NEB SOL NEB PRN (06:41)
[2019-10-09] MEDS ORDERED: ONDANSETRON 4 MG/2 ML VIAL IV PRN (06:41)
[2019-10-09] MEDS ORDERED: ACETAMINOPHEN 500 MG TAB PO PRN (06:41)
[2019-10-09] MEDS ORDERED: IPRATROPIUM BROM 0.5MG/2.5ML NEB PRN (06:41)
[2019-10-09] MEDS: NA CHLORIDE 0.9% 1,000 ML IV SCH ×2 (07:00→15:00)
--- NOTE | 2019-10-09 07:10 | P.HP ---
Certification for Inpatient Patient admitted to: Inpatient With expected LOS: >2 Midnights Patient will require the following post-hospital care: None Practitioner: I am a practitioner with admitting privileges, knowledge of patient current condition, hospital course, and medical plan of care. Services: Services provided to patient in accordance with Admission requirements found in Title 42 Section 412.3 of the Code of Federal Regulations Patient History Date of Service: 10/09/19 Reason for admission: Overdose History of Present Illness: Patient is a 33-year-old gentleman who was found after he had taken 40 Seroquel tablets that were 100 mg apiece. He had also been drinking heavily. He has a history of suicide attempts. He suffers from major depressive disorder. Patient is not able to answer any of my questions. There is no family that is available at this time. Because of his history will need to medically clear him before he can get transfer to psychiatric facility. Will check an ABG and monitor his respiratory status closely in the intensive care unit. He will need to be a 1 all 1. We may also need to Consult pulmonary depending on ABG findings. Allergies No Known Allergies Allergy (Verified 04/15/16 10:13) Home Medications: Hydrocodone 7.5/APAP 325 [[place] 7.5/325 mg] 1 tab PO Q6H PRN 04/15/16 Review of Systems is unable to be obtained Physical Examination - Physical Exam General: Other (Lethargic but wakes up to painful stimulus and arouses for a short time) HEENT: Atraumatic, PERRLA, Mucous membr. moist/pink, EOMI, Sclerae nonicteric Neck: Supple, 2+ carotid pulse no bruit, No LAD, Without JVD or thyroid abnormality Respiratory: Clear to auscultation bilaterally, Normal air movement Cardiovascular: Regular rate/rhythm, Normal S1 S2, No murmurs Gastrointestinal: Normal bowel sounds, Soft and benign, Non-distended, No tenderness Musculoskeletal: No clubbing, No swelling, No tenderness Integumentary: No rashes Neurological: Normal tone, Sensation intact, Abnormal gait, Abnormal speech, Abnormal strength Lymphatics: No axilla or inguinal lymphadenopathy - Studies Laboratory Data (last 24 hrs) 10/09/19 00:35: PT 11.3, INR 0.96, APTT 30.6 10/09/19 00:35: WBC 10.3, Hgb 13.9, Hct 40.6, Plt Count 157 10/09/19 00:35: Sodium 141, Potassium 3.2 L, BUN 18, Creatinine 1.12, Glucose 83 , Total Bilirubin 0.3, AST 22, ALT 24, Alkaline Phosphatase 64 Assessment & Plan - Problems (Diagnosis) (1) Overdose Current Visit: Yes Status: Acute (2) Suicide attempt Current Visit: Yes Status: Acute (3) Alcohol abuse Current Visit: Yes Status: Acute (4) History of major depression Current Visit: Yes Status: Acute - Plan Plan: 1. We will check an ABG 2. Aggressive hydration 3. Monitor his labs including LFTs and renal function 4. Monitor him on telemetry 5. Will need to contact poison Control as well 6. If patient is hypercapnic or his respiratory distress worsens we will consult Pulmonary 7. Inpatient psychiatry when medically stable Discharge Plan: Home Plan to discharge in: Greater than 2 days - Advance Directives Does patient have a Living Will: No Does patient have a Durable POA for Healthcare: No - Code Status/Comfort Care Code Status Assessed: Yes Code Status: Full Code Critical Care: No Time Spent Managing PTS Care (In Minutes): 45
[2019-10-09] MEDS: ENOXAPARIN 40 MG/0.4 ML SQ SCH (09:00)
[2019-10-09] MEDS ORDERED: ENOXAPARIN 40 MG/0.4 ML SQ ONE (09:14)
[2019-10-09 09:24] LABS: Arterial Blood Carboxyhemoglob 3.4 % (0-1.5); Blood Gas Oxyhemoglobin 92.9 % (94-97); Blood O2 Saturation 97.2 % (92-98.5)
[2019-10-09] MEDS ORDERED: LORazepam 2 MG/ML VIAL IV PRN (15:55)
[2019-10-09] MEDS ORDERED: Ringers Lactate 1,000 ML IV SCH (16:00)
[2019-10-09 16:23] LABS: BUN Blood Urea Nitrogen 12 mg/dL (7-18); Bicarbonate 23 mmol/L (21-32); Glucose Level 79 mg/dL (74-106); Potassium 3.7 mmol/L (3.5-5.1); Sodium Level 145 mmol/L (136-145)
[2019-10-09 16:27] VITALS: O2SAT 99; BMI 27.9
--- NOTE | 2019-10-09 16:39 | P.PN ---
Subjective Date of Service: 10/09/19 Chief Complaint: Overdose Subjective: No new changes Physical Examination - Vital Signs Temperature: 97.5 F Blood Pressure: 143/97 Pulse: 98 Respirations: 56 Pulse Ox (%): 99 - Physical Exam General: Delirious HEENT: Atraumatic, Normocephalic Respiratory: Clear to auscultation bilaterally, Normal air movement Cardiovascular: No edema, Normal pulses, Regular rate/rhythm, Normal S1 S2 Gastrointestinal: Normal bowel sounds, Soft and benign Musculoskeletal: No clubbing, No swelling - Studies Laboratory Data (last 24 hrs) 10/09/19 00:35: PT 11.3, INR 0.96, APTT 30.6 10/09/19 00:35: WBC 10.3, Hgb 13.9, Hct 40.6, Plt Count 157 10/09/19 00:35: Sodium 141, Potassium 3.2 L, BUN 18, Creatinine 1.12, Glucose 83 , Total Bilirubin 0.3, AST 22, ALT 24, Alkaline Phosphatase 64 Assessment & Plan Discharge Plan: Psychiatry Plan to discharge in: 48 Hours Physician Review: Patient Assessed, Agree with Above Assessment and Plan Physician Review Additional Text: # Seroquel and alcohol overdose - continue tele monitoring - follow glucose checks - start D5lr - strt ativan prn agaitation # Hypokaemia- follow mg -replte k , follow repeat now and qam # Dispo - sindy dc to [facility] when more stable
[2019-10-09] MEDS: D5LR 1,000 ML IV SCH (17:01)
[2019-10-09] MEDS: LORazepam 2 MG/ML VIAL IV PRN ×3 (17:30→22:08)
[2019-10-09] MEDS ORDERED: FLUMAZENIL 0.1 MG/ML (5 mL VIAL) IV PRN (17:41)
[2019-10-09] MEDS ORDERED: ZIPRASIDONE MESYLA 20 MG/VIAL IM PRN (20:01)
[2019-10-09] MEDS ORDERED: WATER FOR INJ,STERILE 10 ML IM PRN (20:01)
[2019-10-09] MEDS ORDERED: D50W 25 GM/50 ML SYRINGE/VIAL IV PRN (21:30)
[2019-10-10] MEDS: D5LR 1,000 ML IV SCH ×2 (00:01→09:00)
[2019-10-10 05:53] LABS: ALT/SGPT 19 U/L (12-78); AST/SGOT 17 U/L (15-37); Albumin 3.4 g/dL (3.4-5.0); Alkaline Phosphatase 66 U/L (45-117); BUN Blood Urea Nitrogen 11 mg/dL (7-18); Bicarbonate 27 mmol/L (21-32); Bilirubin Total 0.6 mg/dL (0.2-1.0); Glucose Level 98 mg/dL (74-106); Phosphorus 3.1 mg/dL (2.5-4.9); Protein, Total 6.4 g/dL (6.4-8.2); Sodium Level 143 mmol/L (136-145)
[2019-10-10 05:54] LABS: Absolute Lymphocytes (CBC) 1.3 K/uL (0.7-4.9); Basophils % 0.2 % (0-1.3); Lymphocytes % 22.9 % (15.3-44.8); MPV 10.7 fL (7.6-11.3); RBC Red Blood Cell Count 4.58 M/uL (4.33-5.43)
--- NOTE | 2019-10-10 07:50 | EKG ---
Test Date: 2019-10-09 Test Time: 03:36:17 Draw Hand: JULIETTE MEASUREMENT RESULTS: Intervals: Rate: 149 TN: 122 QRSD: 80 QT: 274 QTc: 431 [place]: P: 55 TN: 122 QRS: 105 T: 33 INTERPRETIVE STATEMENTS: Sinus tachycardia Possible Left atrial enlargement Rightward axis Borderline ECG Compared to ECG 08/17/2019 20:02:24 Sinus rhythm no longer present Electronically Signed On 10-10-19 07:49:44 COUNSELING SPECIALIST by Dmitry Kimball
[2019-10-10] MEDS: ENOXAPARIN 40 MG/0.4 ML SQ SCH (10:12)
[2019-10-10 11:56] VITALS: BP 159/99
[2019-10-10] MEDS ORDERED: hydroCHLOROthiazide 25 MG TAB PO SCH (12:00)
--- NOTE | 2019-10-10 12:36 | P.DS ---
Admission Date: 10/09/19 Discharge Date: 10/10/19 Disposition: TRANSFR TO OTHER-PSY/CD/REHAB Discharge Condition: FAIR Reason for Admission: Overdose Brief History of Present Illness: Patient with history of HTN, and depression admitted after attempted suicide with Seroquel and alcohol overdose . . Hospital Course: Patient was noted with elevated alcohol level on presentation. It was unclear how many tablets of Seroquel used . He was initially obtunded and delirious. He was admitted to the intensive care unit with close observation. He had no EKG changes on telemetry. He did not have any hypoglycemia. A repeat alcohol normalize. Patient was given intermittent doses of Ativan for confusion. He is awake now , conversant and agreeable to psych transfer. Patient will be transferred to inpatient psych facility Vital Signs/Physical Exam: Temp Pulse Resp BP Pulse Ox 97.6 F 81 21 H 159/99 H 98 10/10/19 04:00 10/10/19 11:55 10/10/19 06:00 10/10/19 11:55 10/10/19 06:00 General: Alert, In no apparent distress, Oriented x3, Obese HEENT: Atraumatic, Normocephalic Neck: 2+ carotid pulse no bruit, JVD not distended Respiratory: Clear to auscultation bilaterally, Normal air movement Cardiovascular: No edema, Normal pulses, Regular rate/rhythm, Normal S1 S2 Gastrointestinal: Normal bowel sounds, Soft and benign, Non-distended Neurological: Normal gait, Normal speech, Normal strength at 5/5 x4 extr, Normal tone, Sensation intact, Cranial nerves 3-12 intact Laboratory Data at Discharge: WBC 5.9 K/uL (4.3-10.9) D 10/10/19 05:14 Hgb 14.0 g/dL (13.6-17.9) 10/10/19 05:14 Hct 42.0 % (39.6-49.0) 10/10/19 05:14 Plt Count 160 K/uL (152-406) 10/10/19 05:14 PT 11.3 SECONDS (9.5-12.5) 10/09/19 00:35 INR 0.96 10/09/19 00:35 APTT 30.6 SECONDS (24.3-36.9) 10/09/19 00:35 Sodium 143 mmol/L (136-145) 10/10/19 05:14 Potassium 4.0 mmol/L (3.5-5.1) 10/10/19 05:14 BUN 11 mg/dL (7-18) 10/10/19 05:14 Creatinine 0.95 mg/dL (0.55-1.3) 10/10/19 05:14 Glucose 98 mg/dL (74-106) 10/10/19 05:14 Phosphorus 3.1 mg/dL (2.5-4.9) 10/10/19 05:14 Magnesium 2.0 mg/dL (1.8-2.4) 10/10/19 05:14 Total Bilirubin 0.6 mg/dL (0.2-1.0) 10/10/19 05:14 AST 17 U/L (15-37) 10/10/19 05:14 ALT 19 U/L (12-78) 10/10/19 05:14 Alkaline Phosphatase 66 U/L (45-117) 10/10/19 05:14 Home Medications: Buspirone HCl 15 mg PO DAILY 10/10/19 Duloxetine HCl 60 mg PO DAILY 10/10/19 Duloxetine HCl [Drizalma Sprinkle] 30 mg PO DAILY 10/10/19 Quetiapine [Seroquel*] 100 mg PO DAILY 10/10/19 hydroCHLOROthiazide [Hydrochlorothiazide] 25 mg PO DAILY 10/10/19 Diet: Low sodium Activity: Ad mirna Time spent managing pt's care (in minutes): 30
[2019-10-10 15:19] VITALS: TEMP 98.4
--- NOTE | 2019-10-11 08:47 | EKG ---
Test Date: 2019-10-09 Test Time: 00:27:12 Intake Coordinator: MONTY MEASUREMENT RESULTS: Intervals: Rate: 98 ND: 126 QRSD: 86 QT: 346 QTc: 441 [place]: P: 61 ND: 126 QRS: 101 T: 39 INTERPRETIVE STATEMENTS: Normal sinus rhythm Biatrial enlargement Rightward axis Abnormal ECG Compared to ECG 08/17/2019 20:02:24 No significant changes Electronically Signed On 10-11-19 08:47:38 INTELLECTUAL PROPERTY LAWYER by Rojas Cordon
== END 2019-10-10 13:18 | DRG 918 ==
LOC: ER 00:18 → ERHOLD 06:47 → 3RD-ICU 15:19
PROVIDERS: ADMIT Hospitalist; ATTEND Internal Medicine
DX: T43.592A Poisoning by other antipsychotics and neuroleptics, intentional self-harm, initial encounter (principal); E87.6 Hypokalemia; F10.10 Alcohol abuse, uncomplicated
CPT/HCPCS: 36415; 80048; 80053; 80076; 80307; 80320; 80329; 81003; 82805; 82947; 83735; 84100; 85025; 85610; 85730; 93005; 96361; 96365; 96366; 96375; 99285; J1650; J3360; J3486; J7030; J7121

== ENCOUNTER 2020-10-16 13:32 | Emergency (ER) | payer OTHER ==
--- NOTE | 2020-10-16 14:37 | RAD REPORT ---
EXAM DESCRIPTION: RAD - Forearm Right - 10/16/2020 2:26 pm CLINICAL HISTORY: PAIN, blunt force trauma to the arm COMPARISON: No comparisonsNone. FINDINGS: No fracture is identified. There is no dislocation or periosteal reaction noted. Soft tissues are prominent in the mid forearm. No foreign body. IMPRESSION: Soft tissue swelling with no foreign body. No acute bone or joint finding of the right forearm.
--- NOTE | 2020-10-16 14:38 | RAD REPORT ---
EXAM DESCRIPTION: RAD - Hand Right 3 View - 10/16/2020 2:26 pm CLINICAL HISTORY: PAIN COMPARISON: No comparisonsNone. FINDINGS: No fracture is identified. There is no dislocation or periosteal reaction noted. No forei gn body or significant soft tissue abnormality. IMPRESSION: Negative right hand examination.
--- NOTE | 2020-10-16 14:41 | RAD REPORT ---
EXAM DESCRIPTION: RAD - Wrist Right 3 View - 10/16/2020 2:30 pm CLINICAL HISTORY: PAIN COMPARISON: No comparisons FINDINGS: No fracture is identified. There is no dislocation or periosteal reaction noted. Epiphyses and growth plates are normal in appearance. No foreign body or other soft tissue abnormality. IMPRESSION: Negative right wrist examination.
--- NOTE | 2020-10-16 14:44 | EDPHYS ---
Physician Documentation [facility] Name: Mahendra Xie Age: 34 yrs Sex: Male : 1985 Arrival Date: 10/16/2020 Time: 13:34 Bed 28 Private MD: ED Physician Tao Dumont HPI: 10/16 14:00 This 34 yrs old Male presents to ER via Ambulatory with complaints of Arm jmm Injury - R. 14:00 The patient or guardian complains of injury, pain. Onset: The symptoms/episode jmm began/occurred acutely, just prior to arrival. Modifying factors: The symptoms are alleviated by ice. the symptoms are aggravated by movement. Associated signs and symptoms: Pertinent positives: swelling. Historical: - Allergies: 13:49 No Known Allergies; sv - PMHx: 13:49 Anxiety; Bronchitis; Chronic pain; Depression; Hypertension; Migraines; Suicide sv Attempts; TBI; - PSHx: 13:49 leg surgery; Cholecystectomy; sv - Immunization history:: Last tetanus immunization: up to date. - Social history:: Smoking status: Patient reports the use of cigarette tobacco products, smokes two packs cigarettes per day. - Immunization history: Last tetanus immunization: unknown. ROS: 14:00 Constitutional: Negative for fever, chills, and weight loss, Cardiovascular: Negative jmm for chest pain, palpitations, and edema, Respiratory: Negative for shortness of breath, cough, wheezing, and pleuritic chest pain. 14:00 MS/extremity: Positive for injury or acute deformity, pain, swelling. 14:00 All other systems are negative. Exam: 14:00 Constitutional: This is a well developed, well nourished patient who is awake, alert, jmm and in no acute distress. Head/Face: atraumatic. Eyes: EOMI, no conjunctival erythema appreciated ENT: Moist Mucus Membranes Neck: Trachea midline, Supple Chest/axilla: Normal chest wall appearance and motion. Cardiovascular: Regular rate and rhythm. No edema appreciated Respiratory: Normal respirations, no respiratory distress appreciated Abdomen/GI: Non distended, soft Back: Normal ROM Skin: General appearance color normal 14:00 Musculoskeletal/extremity: swelling and tenderness noted to the right proximal forearm, full radial pulse, full operational review sergeant strength, NVI. 14:00 Skin: Appearance: Color: normal in color. 14:00 Neuro: Orientation: is normal, Mentation: is normal, Memory: is normal. 14:00 Psych: Behavior/mood is pleasant, cooperative. Vital Signs: 13:49 BP 128 / 91; Pulse 90; Resp 16; Temp 98.1; Pulse Ox 99% ; Weight 99.79 kg; Height 6 ft. sv 2 in. (187.96 cm); Pain 3/10; 13:49 Body Mass Index 28.25 (99.79 kg, 187.96 cm) sv [place] Coma Score: 14:20 Eye Response: spontaneous(4). Verbal Response: oriented(5). Motor Response: obeys ss commands(6). Total: 15. 14:50 Eye Response: spontaneous(4). Verbal Response: oriented(5). Motor Response: obeys ss commands(6). Total: 15. Trauma Score (Adult): 14:20 Eye Response: spontaneous(1); Verbal Response: oriented(1); Motor Response: obeys ss commands(2); Systolic BP: > 89 mm Hg(4); Respiratory Rate: 10 to 29 per min(4); David Score: 15; Trauma Score: 12 14:50 Eye Response: spontaneous(1); Verbal Response: oriented(1); Motor Response: obeys ss commands(2); Systolic BP: > 89 mm Hg(4); Respiratory Rate: 10 to 29 per min(4); [place] Score: 15; Trauma Score: 12 MDM: 13:57 Patient medically screened. [facility] 14:42 Data reviewed: vital signs, nurses notes. Counseling: I had a detailed discussion with tiffanie the patient and/or guardian regarding: the historical points, exam findings, and any diagnostic results supporting the discharge/admit diagnosis, radiology results, the need for outpatient follow up, to return to the emergency department if symptoms worsen or persist or if there are any questions or concerns that arise at home. ED course: Patient advised to follow up with pcp for reevaluation. Patient is given strict return precautions. Patient understood and agrees with the plan of care. . 10/16 13:56 Order name: Forearm Right XRAY; Complete Time: 14:42 sv 10/16 13:56 Order name: Wrist Right 3 View XRAY; Complete Time: 14:42 sv 10/16 13:56 Order name: Hand Right 3 View XRAY; Complete Time: 14:42 sv Administered Medications: No medications were administered Disposition: 14:51 Co-signature as Attending Physician, Tao Dumont MD. rn Disposition: 10/16/20 14:44 Discharged to Home. Impression: Forearm Contusion. - Condition is Stable. - Discharge Instructions: Contusion. - Medication Reconciliation Form, Thank You Letter, Antibiotic Education, Prescription Opioid Use form. - Follow up: Private Physician; When: 2 - 3 days; Reason: Recheck today's complaints, Continuance of care, Re-evaluation by your physician. Signatures: Dispatcher [employer] EDAdela Merchant RN RN Chris Foley PA PA [facility] Tao Dumont MD MD rn [facility] RN ss Corrections: (The following items were deleted from the chart) 14:50 14:44 10/16/2020 14:44 Discharged to Home. Impression: Forearm Contusion. Condition is ss Stable. Forms are Medication Reconciliation Form, Thank You Letter, Antibiotic Education, Prescription Opioid Use. Follow up: Private Physician; When: 2 - 3 days; Reason: Recheck today's complaints, Continuance of care, Re-evaluation by your physician. tiffanie
--- NOTE | 2020-10-16 14:44 | ER ---
Nurse's Notes [facility] Name: Mahendra Xie Age: 34 yrs Sex: Male : 1985 Arrival Date: 10/16/2020 Time: 13:34 Bed 28 Private MD: Diagnosis: Forearm Contusion Presentation: 10/16 13:47 Chief complaint: Patient states: right arm pain after dropping a transmission on it sv today around 1300. Abrasion noted to right wrist area. Coronavirus screen: Client denies travel out of the [place] in the last 14 days. At this time, the client does not indicate any symptoms associated with coronavirus-19. Ebola Screen: No symptoms or risks identified at this time. Risk Assessment: Do you want to hurt yourself or someone else? Patient reports no desire to harm self or others. Onset of symptoms was October 16, 2020. 13:47 Method Of Arrival: Ambulatory sv 13:47 Acuity: SERENA 3 sv 13:49 Initial Sepsis Screen: Does the patient meet any 2 criteria? No. Patient's initial sv sepsis screen is negative. Does the patient have a suspected source of infection? No. Patient's initial sepsis screen is negative. 13:55 Care prior to arrival: None. Mechanism of Injury: SEE TRIAGE NOTE. Trauma event ss details: Injury occurred in the [facility], Injury occurred: at home. Injury occurred: October 16, 2020. Triage Assessment: 13:47 General: Appears in no apparent distress. uncomfortable, Behavior is calm, cooperative, sv appropriate for age. Pain: Complains of pain in right arm Pain currently is 3 out of 10 on a pain scale. Neuro: Level of Consciousness is awake, alert, obeys commands, Oriented to person, place, time, situation, Moves all extremities. Respiratory: Respiratory effort is even, unlabored, Respiratory pattern is regular, symmetrical. Musculoskeletal: Range of motion: limited in right wrist. Trauma Activation: Alert Physician: ED Physician; Name: ; Notified At: ; Arrived At: Physician: General Surgeon; Name: ; Notified At: ; Arrived At: Physician: Radiology; Name: ; Notified At: ; Arrived At: Physician: Respiratory; Name: ; Notified At: ; Arrived At: Physician: Lab; Name: ; Notified At: ; Arrived At: Historical: - Allergies: 13:49 No Known Allergies; sv - PMHx: 13:49 Anxiety; Bronchitis; Chronic pain; Depression; Hypertension; Migraines; Suicide sv Attempts; TBI; - PSHx: 13:49 leg surgery; Cholecystectomy; sv - Immunization history:: Last tetanus immunization: up to date. - Social history:: Smoking status: Patient reports the use of cigarette tobacco products, smokes two packs cigarettes per day. - Immunization history: Last tetanus immunization: unknown. Screenin:01 Abuse screen: Denies threats or abuse. Denies injuries from another. Nutritional ss screening: No deficits noted. Tuberculosis screening: Never had TB. Fall Risk None identified. Primary Survey: 13:55 NO uncontrolled hemorrhage observed. A: Airway: patent, Oxygen via non-rebreather Oral ss cavity: clear, Trachea midline. Breathing/Chest: Respiratory pattern: regular. Circulation: Pulses: palpable right radial artery and left radial artery. Skin color: pink, Skin temperature: warm. Disability Alert. Exposure/Environment: There is no evidence of uncontrolled external bleeding. Obvious injury(ies) are noted at this time: R FA. 14:20 Reassessment Airway Airway Patent Oxygen No O2 Oral cavity Clear Trachea Midline ss Breathing/Chest Respiratory pattern Regular Respiratory effort Spontaneous Unlabored Breath sounds Clear Chest inspection Symmetrical Circulation Pulses Palpable Color [place] Temperature Warm Disability Alert. Secondary Survey: 14:20 HEENT: Ears: clear Nose: clear Throat: No injury or deformity noted. is clear. ss Musculoskeletal: Circulation, motion, and sensation intact. Range of motion: intact in all extremities, Swelling present in dorsal aspect of right forearm. Assessment: 13:55 General: Appears in no apparent distress. comfortable, Behavior is calm, cooperative, ss Denies fever, feeling ill, fatigue, chills. Pain: Complains of pain in dorsal aspect of right forearm Pain currently is 3 out of 10 on a pain scale. Quality of pain is described as aching, tender, Pain began suddenly, Is continuous. Neuro: Level of Consciousness is awake, alert, obeys commands, Oriented to person, place, time, situation, Community Advocate are equal bilaterally Speech is normal, Facial symmetry appears normal. EENT: Oral mucosa is moist. Throat is clear. Cardiovascular: Pulses are palpable in right radial artery, right posterior tibial artery, left radial artery and left posterior tibial artery. Respiratory: Airway is patent Respiratory effort is even, unlabored, Respiratory pattern is regular, symmetrical. GI: No signs and/or symptoms were reported involving the gastrointestinal system. : No signs and/or symptoms were reported regarding the genitourinary system. Derm: Skin is intact, is healthy with good turgor, Skin is dry, Skin is pink, warm \T\ dry. normal. Musculoskeletal: Circulation, motion, and sensation intact. Range of motion: intact in all extremities, Swelling present in dorsal aspect of right forearm. 13:56 Reassessment: Received VO from Dr Dumont for xrays. sv 14:50 Reassessment: Patient appears in no apparent distress at this time. Patient and/or ss family updated on plan of care and expected duration. Pain level reassessed. Patient is alert, oriented x 3, equal unlabored respirations, skin warm/dry/pink. Vital Signs: 13:49 BP 128 / 91; Pulse 90; Resp 16; Temp 98.1; Pulse Ox 99% ; Weight 99.79 kg; Height 6 ft. sv 2 in. (187.96 cm); Pain 3/10; 13:49 Body Mass Index 28.25 (99.79 kg, 187.96 cm) sv [place] Coma Score: 14:20 Eye Response: spontaneous(4). Verbal Response: oriented(5). Motor Response: obeys ss commands(6). Total: 15. 14:50 Eye Response: spontaneous(4). Verbal Response: oriented(5). Motor Response: obeys ss commands(6). Total: 15. Trauma Score (Adult): 14:20 Eye Response: spontaneous(1); Verbal Response: oriented(1); Motor Response: obeys ss commands(2); Systolic BP: > 89 mm Hg(4); Respiratory Rate: 10 to 29 per min(4); David Score: 15; Trauma Score: 12 14:50 Eye Response: spontaneous(1); Verbal Response: oriented(1); Motor Response: obeys ss commands(2); Systolic BP: > 89 mm Hg(4); Respiratory Rate: 10 to 29 per min(4); David Score: 15; Trauma Score: 12 ED Course: 13:34 Patient arrived in ED. ds1 13:47 Arm band placed on. sv 13:48 Triage completed. sv 13:53 Chris Trujillo PA is PHCP. jmm 13:53 Tao Dumont MD is Attending Physician. [facility] 13:57 Ice pack applied. sv 14:01 Ursula Diego, RN is Primary Nurse. ss 14:01 Patient has correct armband on for positive identification. Bed in low position. Call ss light in reach. 14:26 Forearm Right XRAY In Process Unspecified. EDMS 14:26 Hand Right 3 View XRAY In Process Unspecified. EDMS 14:30 Wrist Right 3 View XRAY In Process Unspecified. EDMS 14:30 Patient maintains SpO2 saturation greater than 95% on room air. ss 14:50 No provider procedures requiring assistance completed. Patient did not have IV access ss during this emergency room visit. Administered Medications: No medications were administered Intake: 14:50 PO: 0ml; Total: 0ml. ss Outcome: 14:30 Patient's length of stay was not longer than 2 hours. ss 14:44 Discharge ordered by MD. [facility] 14:50 Discharged to home ambulatory. ss 14:50 Condition: good 14:50 Discharge instructions given to patient, Instructed on discharge instructions, follow up and referral plans. Demonstrated understanding of instructions, follow-up care. 14:50 Patient left the ED. ss Signatures: Dispatcher [employer] Adela Jennings RN RN Chris Trujillo PA PA [facility] Pamela Daniel ds1 Ursula Diego, DAYANARA RN ss Corrections: (The following items were deleted from the chart) 13:53 13:49 BP 128 / 91; Pulse 90bpm; Resp 16bpm; Pulse Ox 99%; Temp 98.1F; 99.79 kg; Height sv 6 ft. 2 in.; BMI: 28.2; sv 13:56 13:47 Chief complaint: Patient states: right arm pain after dropping a transmission on sv it today around 1300. sv
[2020-10-16 15:17] VITALS: BP 128/91; TEMP 98.1; O2SAT 99
== END 2020-10-16 14:50 | disposition home or self-care (01) ==
LOC: ER 13:32
DX: S50.11XA Contusion of right forearm, initial encounter (principal); F41.9 Anxiety disorder, unspecified; F32.9 Major depressive disorder, single episode, unspecified; I10 Essential (primary) hypertension; G89.29 Other chronic pain; F17.210 Nicotine dependence, cigarettes, uncomplicated
CPT/HCPCS: 99284; G0390

== ENCOUNTER 2023-02-11 01:11 | Emergency (ER) | payer OTHER ==
[2023-02-11] MEDS ORDERED: NA CHLORIDE 0.9% 1,000 ML ONE (01:46)
[2023-02-11] MEDS ORDERED: DIPHENHYDRAMINE 50 MG/ML VIAL ONE (01:46)
[2023-02-11] MEDS ORDERED: KETOROLAC 30 MG/ML INJ ONE (01:46)
[2023-02-11] MEDS ORDERED: METOCLOPRAMIDE 10 MG/2mL INJ ONE (01:46)
--- NOTE | 2023-02-11 02:23 | EDPHYS ---
Physician Documentation [facility] Name: Mahendra Xie Age: 37 yrs Sex: Male : 1985 Arrival Date: 02/11/2023 Time: 01:11 Bed 13 Private MD: ED Physician Michel Munoz HPI: 02/11 01:17 This 37 yrs old Male presents to ER via Unassigned with complaints of sp4 Headache. 02:25 Patient states he developed moderate to severe frontal headache starting 1-1/2 days sp4 ago. Patient states he has history of migraine headaches. This is his fourth severe migraine. This headache feels like regular migraine without atypical features. Reported episode of vomiting prior to arrival. Patient's eyes are sensitive to light.. Historical: - Allergies: 01:18 No Known Allergies; as6 - PMHx: 01:18 Anxiety; Bronchitis; Chronic pain; Depression; Hypertension; Migraines; Suicide as6 Attempts; TBI; - PSHx: 01:18 neck; back; crainal; Cholecystectomy; ankle; as6 - Immunization history:: Client reports having NOT received the Covid vaccine. - Social history:: Smoking status: Patient reports the use of cigarette tobacco products, smokes one pack cigarettes per day. - Family history:: not pertinent. ROS: 02:25 Constitutional: Negative for fever, chills, and weight loss, Eyes: Negative for injury, sp4 pain, redness, and discharge, Abdomen/GI: Negative for abdominal pain, diarrhea, and constipation, positive for nausea, vomiting Neuro: Negative for weakness, numbness, tingling, and seizure, positive for headache. 02:25 All other systems are negative. Exam: 02:25 Constitutional: This is a well developed, well nourished patient who is awake, alert, sp4 and in no acute distress. Uncomfortable appearing male Head/Face: Normocephalic, atraumatic. Eyes: Pupils equal round and reactive to light, extra-ocular motions intact. Lids and lashes normal. Conjunctiva and sclera are not injected. Cornea within normal limits. Periorbital areas with no swelling, redness, or edema. ENT: Nares patent. No nasal discharge, no septal abnormalities noted. Tympanic membranes are normal and external auditory canals are clear. Oropharynx with no redness, swelling, or masses, exudates, or evidence of obstruction, uvula midline. Mucous membranes moist. Neck: Trachea midline, no thyromegaly or masses palpated, and no cervical lymphadenopathy. Supple, full range of motion without nuchal rigidity, or vertebral point tenderness. No Meningismus. Chest/axilla: Normal chest wall appearance and motion. Nontender with no deformity. No lesions are appreciated. Cardiovascular: Regular rate and rhythm with a normal S1 and S2. No gallops, murmurs, or rubs. Normal PMI, no JVD. No pulse deficits. Respiratory: Lungs have equal breath sounds bilaterally, clear to auscultation and percussion. No rales, rhonchi or wheezes noted. No increased work of breathing, no retractions or nasal flaring. Abdomen/GI: Soft, non-tender, with normal bowel sounds. No distension or tympany. No guarding or rebound. No evidence of tenderness throughout. Back: No spinal tenderness. No costovertebral tenderness. Skin: Warm, dry with normal turgor. Normal color with no rashes, no lesions, and no evidence of cellulitis. MS/ Extremity: Pulses equal, no cyanosis. Neurovascular intact. Full, normal range of motion. Neuro: Awake and alert, GCS 15, oriented to person, place, time, and situation. Cranial nerves II-XII grossly intact. Motor strength 5/5 in all extremities. Sensory grossly intact. Psych: Awake, alert, with orientation to person, place and time. Behavior, mood, and affect are within normal limits Vital Signs: 01:16 BP 178 / 109; Pulse 92; Resp 18 S; Temp 98.8(TE); Pulse Ox 98% on R/A; Weight 99.79 kg as6 (R); Height 6 ft. 0 in. (R); Pain 8/10; 01:22 BP 165 / 104; Pulse 94; Resp 16; Pulse Ox 100% on R/A; jb4 02:09 BP 145 / 85; Pulse 87; Resp 16; Pulse Ox 98% on R/A; jb4 01:16 Body Mass Index 29.84 (99.79 kg, 182.88 cm) as6 01:16 Pain Scale: Adult as6 David Coma Score: 02:25 Eye Response: spontaneous(4). Motor Response: obeys commands(6). Verbal Response: sp4 oriented(5). Total: 15. MDM: 01:17 Patient medically screened. sp4 02:25 Differential diagnosis: hypertensive headache, hypoglycemia, migraine, tension sp4 headache, vasomotor headache. Data reviewed: vital signs, nurses notes, old medical records, lab test result(s), finger stick glucose. ED course: Headache has resolved after the migraine cocktail IV. Patient states he is ready for discharge home. Will discharge home with p.o. Fioricet as needed for headaches. 02/11 01:42 Order name: Glucose, Ancillary Testing; Complete Time: 02:22 EDMS 02/11 01:24 Order name: Saline Lock; Complete Time: 01:35 sp4 02/11 01:24 Order name: Accucheck Blood Glucose; Complete Time: 01:34 sp4 Administered Medications: 01:47 Drug: metoCLOPramide IVP 10 mg Route: IVP; Site: right antecubital; jb4 01:47 Drug: diphenhydrAMINE IVP 25 mg Route: IVP; Site: right antecubital; jb4 01:47 Drug: Ketorolac IVP 30 mg Route: IVP; Site: right antecubital; jb4 01:47 Drug: NS 0.9% IV 1000 ml Route: IV; Rate: 1 bolus; Site: right antecubital; jb4 Disposition Summary: 02/11/23 02:22 Discharge Ordered Location: Home sp4 Problem: new sp4 Symptoms: have improved sp4 Condition: Stable sp4 Diagnosis - Migraine without aura, intractable sp4 Followup: sp4 - With: Private Physician - When: 7 - 10 days - Reason: Recheck today's complaints Discharge Instructions: - Discharge Summary Sheet sp4 - Migraine Headache sp4 Prescriptions: - Fioricet 50-300-40 mg Oral capsule - take 1 capsule by ORAL route every 6 hours as needed for pain; 30 capsule; sp4 Refills: 0, Product Selection Permitted Signatures: Sukh Hanks RN RN jb4 Ralf Galarza RN RN as6 Michel Munoz MD MD sp4
--- NOTE | 2023-02-11 02:23 | ER ---
Nurse's Notes [facility] Name: Mahendra Xie Age: 37 yrs Sex: Male : 1985 Arrival Date: 02/11/2023 Time: 01:11 Bed 13 Private MD: Diagnosis: Migraine without aura, intractable Presentation: 02/11 01:16 Chief complaint: Patient states: migraine for approx a day and a half. Coronavirus as6 screen: At this time, the client does not indicate any symptoms associated with coronavirus-19. Ebola Screen: No symptoms or risks identified at this time. Initial Sepsis Screen: Does the patient meet any 2 criteria? No. Patient's initial sepsis screen is negative. Does the patient have a suspected source of infection? No. Patient's initial sepsis screen is negative. Risk Assessment: Do you want to hurt yourself or someone else? Patient reports no desire to harm self or others. Onset of symptoms was February 10, 2023. 01:16 Method Of Arrival: Ambulatory as6 01:16 Acuity: SERENA 3 as6 Historical: - Allergies: 01:18 No Known Allergies; as6 - PMHx: 01:18 Anxiety; Bronchitis; Chronic pain; Depression; Hypertension; Migraines; Suicide as6 Attempts; TBI; - PSHx: 01:18 neck; back; crainal; Cholecystectomy; ankle; as6 - Immunization history:: Client reports having NOT received the Covid vaccine. - Social history:: Smoking status: Patient reports the use of cigarette tobacco products, smokes one pack cigarettes per day. - Family history:: not pertinent. Screenin:22 [facility] ED Fall Risk Assessment (Adult) History of falling in the last 3 months, jb4 including since admission No falls in past 3 months (0 pts) Confusion or Disorientation No (0 pts) Score/Fall Risk Level 0 - 2 = Low Risk Oriented to surroundings, Maintained a safe environment. Abuse screen: Denies threats or abuse. Nutritional screening: No deficits noted. Tuberculosis screening: No symptoms or risk factors identified. Assessment: General: Appears in no apparent distress. uncomfortable, Behavior is calm, cooperative, jb4 appropriate for age. Pain: Complains of pain in Headache Pain does not radiate. Pain currently is 10 out of 10 on a pain scale. Neuro: Level of Consciousness is awake, alert, obeys commands, Oriented to person, place, time, situation, Moves all extremities. Full function Speech is normal, Facial symmetry appears normal, Reports headache photophobia. Cardiovascular: Patient's skin is warm and dry. Respiratory: Airway is patent Respiratory effort is even, unlabored, Respiratory pattern is regular, symmetrical. GI: Reports nausea, vomiting. : No signs and/or symptoms were reported regarding the genitourinary system. EENT: No signs and/or symptoms were reported regarding the EENT system. Derm: Skin is intact, Skin is pink, warm \T\ dry. Musculoskeletal: Circulation, motion, and sensation intact. Range of motion: intact in all extremities. 02:09 Reassessment: Patient appears in no apparent distress at this time. Patient and/or jb4 family updated on plan of care and expected duration. Pain level reassessed. Patient is alert, oriented x 3, equal unlabored respirations, skin warm/dry/pink. Vital Signs: 01:16 BP 178 / 109; Pulse 92; Resp 18 S; Temp 98.8(TE); Pulse Ox 98% on R/A; Weight 99.79 kg as6 (R); Height 6 ft. 0 in. (R); Pain 8/10; 01:22 BP 165 / 104; Pulse 94; Resp 16; Pulse Ox 100% on R/A; jb4 02:09 BP 145 / 85; Pulse 87; Resp 16; Pulse Ox 98% on R/A; jb4 01:16 Body Mass Index 29.84 (99.79 kg, 182.88 cm) as6 01:16 Pain Scale: Adult as6 [place] Coma Score: 02:25 Eye Response: spontaneous(4). Motor Response: obeys commands(6). Verbal Response: sp4 oriented(5). Total: 15. ED Course: 01:13 Patient arrived in ED. ag3 01:17 Michel Munoz MD is Attending Physician. sp4 01:18 Triage completed. as6 01:19 Arm band placed on. as6 01:20 Sukh Hanks, DAYANARA is Primary Nurse. jb4 01:22 Patient has correct armband on for positive identification. Bed in low position. Call jb4 light in reach. Side rails up X 1. Client placed on continuous cardiac and pulse oximetry monitoring. NIBP monitoring applied. 01:22 No provider procedures requiring assistance completed. jb4 02:09 IV discontinued, intact, bleeding controlled, No redness/swelling at site. Pressure jb4 dressing applied. Administered Medications: 01:47 Drug: metoCLOPramide IVP 10 mg Route: IVP; Site: right antecubital; jb4 01:47 Drug: diphenhydrAMINE IVP 25 mg Route: IVP; Site: right antecubital; jb4 01:47 Drug: Ketorolac IVP 30 mg Route: IVP; Site: right antecubital; jb4 01:47 Drug: NS 0.9% IV 1000 ml Route: IV; Rate: 1 bolus; Site: right antecubital; jb4 Medication: 01:22 VIS not applicable for this client. jb4 Outcome: 02:22 Discharge ordered by . sp4 02:29 Discharged to home ambulatory. jb4 02:29 Condition: stable 02:29 Discharge instructions given to patient, Instructed on discharge instructions, follow up and referral plans. medication usage, Demonstrated understanding of instructions, follow-up care, medications, Prescriptions given X 1. 02:30 Patient left the ED. jb4 Signatures: Sukh Hanks, RN RN jb4 Danika Canada Ashby, DAYANARA RN as6 Michel Munoz MD MD sp4
[2023-02-11 02:53] VITALS: TEMP 98.8
[2023-02-11 02:55] VITALS: BP 145/85; O2SAT 98
== END 2023-02-11 02:30 | disposition home or self-care (01) ==
LOC: ER 01:11
DX: G43.019 Migraine without aura, intractable, without status migrainosus (principal); I10 Essential (primary) hypertension; F17.210 Nicotine dependence, cigarettes, uncomplicated; Z87.820 Personal history of traumatic brain injury
CPT/HCPCS: 82947; 96375; 96374; 99284; J2765; J1200; J7030

== ENCOUNTER 2023-02-14 16:12 | Emergency (ER) | payer OTHER ==
[2023-02-14] MEDS ORDERED: dexAMETHasone 10 MG/ML VIAL ONE (17:45)
[2023-02-14] MEDS ORDERED: DIPHENHYDRAMINE 50 MG/ML VIAL ONE (17:45)
[2023-02-14] MEDS ORDERED: METOCLOPRAMIDE 10 MG/2mL INJ ONE (17:45)
[2023-02-14] MEDS ORDERED: NA CHLORIDE 0.9% 1,000 ML ONE (17:46)
[2023-02-14 17:58] LABS: Absolute Lymphocytes (CBC) 1.2 K/uL (0.7-4.9); Hematocrit 48.2 % (39.6-49.0); Lymphocytes % 16.5 % (15.3-44.8); MCV 91.9 fL (80-100); MPV 9.6 fL (7.6-11.3); RBC Red Blood Cell Count 5.25 M/uL (4.33-5.43)
[2023-02-14 18:16] LABS: Albumin 4.3 g/dL (3.4-5.0); Bilirubin Total 0.3 mg/dL (0.2-1.0); Potassium 4.6 mEq/L (3.5-5.1); Protein, Total 8.1 g/dL (6.4-8.2)
--- NOTE | 2023-02-14 18:58 | RAD REPORT ---
EXAM DESCRIPTION: CT - Head Brain Wo Cont - 02/14/2023 6:30 pm CLINICAL HISTORY: Headache COMPARISON: 2013 TECHNIQUE: Computed axial tomography of the head was obtained. IV contrast was not requested. All CT scans are performed using dose optimization technique as appropriate and may include automated exposure control or mA/KV adjustment according to patient size. FINDINGS: Gliosis is present within the left frontal lobe. An acute intracranial bleed is not noted. The ventricles are normal in caliber No extra-axial fluid collection is noted. Fluid within the sinuses/ mastoids is not seen. IMPRESSION: No acute intracranial abnormality is seen If patient's symptoms persist MRI of the brain would be recommended
--- NOTE | 2023-02-14 19:49 | EDPHYS ---
Physician Documentation [facility] Name: Mahendra Xie Age: 37 yrs Sex: Male : 1985 Arrival Date: 02/14/2023 Time: 16:12 Bed 11 Private MD: ED Physician Joaquin Velazquez HPI: 02/14 17:27 This 37 yrs old Male presents to ER via Ambulatory with complaints of Headache. rt 17:27 Patient with prior history of TBI in 2008 as well as intermittent migraines presents to rt the ED with persistent headache over the past 4 days. Patient was seen in the ED, was given migraine cocktail with resolution, but, the headache has returned. It fluctuates in intensity, patient states that when the pain is intense, his vision goes "white." He states that he does not feel this way currently. He does report of nausea and dizziness associated with the headache. Denies neck stiffness, new trauma. Denies other acute complaints at this time. Symptoms are moderate in severity, aching in nature, nonradiating, no other aggravating or alleviating factors.. Historical: - Allergies: 16:33 No Known Allergies; ld1 - PMHx: 16:33 Anxiety; Bronchitis; Chronic pain; Depression; Hypertension; Migraines; Suicide ld1 Attempts; TBI; - PSHx: 16:33 Ankle; back; Cholecystectomy; crainal; neck; ld1 - Immunization history:: Adult Immunizations up to date, Client reports receiving the 2nd dose of the Covid vaccine. - Social history:: Smoking status: Patient denies any tobacco usage or history of. Patient/guardian denies using alcohol. - Family history:: not pertinent. ROS: 17:27 Constitutional: Negative for fever, chills, and weight loss, Cardiovascular: Negative rt for chest pain, palpitations, and edema, Respiratory: Negative for shortness of breath, cough, wheezing, and pleuritic chest pain, Skin: Negative for injury, rash, and discoloration, Psych: Negative for depression, anxiety, suicide ideation, homicidal ideation, and hallucinations. 17:27 Eyes: Positive for visual disturbance. 17:27 Abdomen/GI: Positive for nausea, Negative for abdominal pain, vomiting. 17:27 Neuro: Positive for headache, Negative for altered mental status, loss of consciousness. Exam: 17:27 Constitutional: This is a well developed, well nourished patient who is awake, alert, rt and in no acute distress. Head/Face: Normocephalic, atraumatic. Chest/axilla: Normal chest wall appearance and motion. Nontender with no deformity. No lesions are appreciated. Cardiovascular: Regular rate and rhythm with a normal S1 and S2. No gallops, murmurs, or rubs. Normal PMI, no JVD. No pulse deficits. Respiratory: Lungs have equal breath sounds bilaterally, clear to auscultation and percussion. No rales, rhonchi or wheezes noted. No increased work of breathing, no retractions or nasal flaring. Abdomen/GI: Soft, non-tender, with normal bowel sounds. No distension or tympany. No guarding or rebound. No evidence of tenderness throughout. Skin: Warm, dry with normal turgor. Normal color with no rashes, no lesions, and no evidence of cellulitis. MS/ Extremity: Pulses equal, no cyanosis. Neurovascular intact. Full, normal range of motion. Neuro: Awake and alert, GCS 15, oriented to person, place, time, and situation. Cranial nerves II-XII grossly intact. Motor strength 5/5 in all extremities. Sensory grossly intact. Cerebellar exam normal. Normal gait. Psych: Awake, alert, with orientation to person, place and time. Behavior, mood, and affect are within normal limits. 17:58 ECG was reviewed by the Attending Physician. rt Vital Signs: 16:33 BP 166 / 110; Pulse 84; Resp 18; Temp 97.5(TE); Pulse Ox 100% on R/A; ld1 16:35 BP 220 / ???; Weight 99.79 kg; Height 5 ft. 11 in. ; ld1 19:36 BP 147 / 88; Pulse 87; Resp 16; Pulse Ox 100% on R/A; kd3 20:58 Pulse 81; Resp 16; Pulse Ox 99% on R/A; kd3 16:35 Body Mass Index 30.68 (99.79 kg, 180.34 cm) ld1 MDM: 16:38 Patient medically screened. rt 17:00 Differential diagnosis: hypertensive headache, meningitis, meningoencephalitis, cp migraine, sinusitis, subarachnoid bleed, tension headache. 19:47 Data reviewed: vital signs, nurses notes, lab test result(s), EKG, radiologic studies, cp CT scan, I have discussed the patient's presentation/case with the attending Emergency Department Physician; and as a result, I will discharge patient. 19:47 I considered the following discharge prescriptions or medication management in the emergency department Medications were administered in the Emergency Department. See MAR. ED course: Patient reports headache improved. 02/14 16:39 Order name: CBC with Diff; Complete Time: 19:13 rt 02/14 19:40 Interpretation: Normal except: RDW 15.6; NILS% 76.5. 02/14 16:39 Order name: CMP; Complete Time: 19:13 rt 02/14 19:13 Interpretation: Normal except: CL 110; BUN 21; GFR 78; GLOB 3.8. 02/14 16:39 Order name: Troponin High Sensitivity; Complete Time: 19:13 rt 02/14 16:39 Order name: CT Head Brain wo Cont; Complete Time: 19:13 rt 02/14 19:41 Interpretation: Report reviewed. 02/14 16:39 Order name: EKG; Complete Time: 16:55 rt 02/14 16:39 Order name: EKG - Nurse/Tech; Complete Time: 17:48 rt 02/14 19:13 Order name: Vital Signs: please update; Complete Time: 19:38 EC:58 Rate is 76 beats/min. Rhythm is regular, Normal Sinus Rhythm with No ectopy. Right axis rt deviation noted. [place] interval is normal. QRS interval is normal. QT interval is normal. No Q waves. T waves are Normal. No ST changes noted. Interpreted by me. Administered Medications: 17:44 Drug: Decadron - Dexamethasone IVP 10 mg Route: IVP; Site: left antecubital; ld1 20:59 Follow up: Response: No adverse reaction kd3 17:44 Drug: diphenhydrAMINE IVP 25 mg Route: IVP; Site: left antecubital; ld1 20:59 Follow up: Response: No adverse reaction kd3 17:45 Drug: NS 0.9% IV 1000 ml Route: IV; Rate: 1 bolus; Site: left antecubital; ld1 20:59 Follow up: Response: No adverse reaction; IV Status: Completed infusion kd3 17:45 Drug: metoCLOPramide IVP 10 mg Route: IVP; Site: left antecubital; ld1 20:59 Follow up: Response: No adverse reaction kd3 Disposition Summary: 02/14/23 19:48 Discharge Ordered Location: Home cp Problem: new cp Symptoms: have improved cp Condition: Stable cp Diagnosis - Headache cp - Hypertensive heart disease without heart failure cp Followup: cp - With: Private Physician - When: 2 - 3 days - Reason: Recheck today's complaints Discharge Instructions: - Discharge Summary Sheet cp - General Headache Without Cause cp - Hypertension, Adult cp - Aspirin and Your Heart cp - Form - Blood Pressure Record Sheet cp - How to Take Your Blood Pressure cp Forms: - Medication Reconciliation Form cp - Thank You Letter cp Addendum: 02/17/2023 23:17 Co-signature as Attending Physician, Joaquin Velazquez MD I reviewed the patient's care r t provided by the Advanced Practice Provider and agree with the diagnosis and treatment plan. Signatures: Dispatcher [employer] EDMS Vamshi Alcantar PA PA cp Eli Valverde RN RN ld1 Joaquin Velazquez MD MD rt Carmen Valiente RN kd3 Corrections: (The following items were deleted from the chart) 02/14 16:56 16:46 CT-HEAD/BRAIN W/O CONTRAST ordered. EDMS EDMS 17:23 16:56 Head Brain Wo Cont ordered. EDMS EDMS
--- NOTE | 2023-02-14 19:49 | ER ---
Nurse's Notes [facility] Name: Mahendra Xie Age: 37 yrs Sex: Male : 1985 Arrival Date: 02/14/2023 Time: 16:12 Bed 11 Private MD: Diagnosis: Headache;Hypertensive heart disease without heart failure Presentation: 02/14 16:32 Chief complaint: Patient states: Migraine X 4 days. Vomiting, "Vision goes white when ld1 pain gets bad.". Coronavirus screen: At this time, the client does not indicate any symptoms associated with coronavirus-19. Ebola Screen: No symptoms or risks identified at this time. Initial Sepsis Screen: Does the patient meet any 2 criteria? No. Patient's initial sepsis screen is negative. Does the patient have a suspected source of infection? No. Patient's initial sepsis screen is negative. Risk Assessment: Do you want to hurt yourself or someone else? Patient reports no desire to harm self or others. Onset of symptoms was February 14, 2023. 16:32 Method Of Arrival: Ambulatory ld1 16:32 Acuity: SERENA 3 ld1 Triage Assessment: 16:33 Headache History: The patient has had previous headaches and this one is similar to ld1 previous episodes. General: Appears in no apparent distress. comfortable, Behavior is calm, cooperative, appropriate for age. Pain: Complains of pain in face Pain does not radiate. Pain currently is 9 out of 10 on a pain scale. Quality of pain is described as pressure, throbbing, Pain began 2-3 days ago. Is continuous, Also complains of nausea. EENT: No signs and/or symptoms were reported regarding the EENT system. Neuro: Level of Consciousness is awake, alert, obeys commands, Oriented to person, place, time, situation. Cardiovascular: Capillary refill < 3 seconds Patient's skin is warm and dry. Respiratory: Airway is patent Respiratory effort is even, unlabored. GI: Abdomen is flat, non-distended. : No signs and/or symptoms were reported regarding the genitourinary system. Derm: No signs and/or symptoms reported regarding the dermatologic system. Musculoskeletal: No signs and/or symptoms reported regarding the musculoskeletal system. Historical: - Allergies: 16:33 No Known Allergies; ld1 - PMHx: 16:33 Anxiety; Bronchitis; Chronic pain; Depression; Hypertension; Migraines; Suicide ld1 Attempts; TBI; - PSHx: 16:33 Ankle; back; Cholecystectomy; crainal; neck; ld1 - Immunization history:: Adult Immunizations up to date, Client reports receiving the 2nd dose of the Covid vaccine. - Social history:: Smoking status: Patient denies any tobacco usage or history of. Patient/guardian denies using alcohol. - Family history:: not pertinent. Screenin:37 [facility] ED Fall Risk Assessment (Adult) History of falling in the last 3 months, kd3 including since admission No falls in past 3 months (0 pts) Confusion or Disorientation No (0 pts) Intoxicated or Sedated No (0 pts) Impaired Gait No (0 pts) Mobility Assist Device Used No (0 pt) Altered Elimination No (0 pt) Score/Fall Risk Level 0 - 2 = Low Risk Maintained a safe environment. Abuse screen: Denies threats or abuse. Denies injuries from another. Nutritional screening: No deficits noted. Tuberculosis screening: No symptoms or risk factors identified. Assessment: 19:37 Reassessment: Patient states feeling better. Patient states symptoms have improved. kd3 General: Appears in no apparent distress. Behavior is calm, cooperative. Pain: Denies pain. Vital Signs: 16:33 BP 166 / 110; Pulse 84; Resp 18; Temp 97.5(TE); Pulse Ox 100% on R/A; ld1 16:35 BP 220 / ???; Weight 99.79 kg; Height 5 ft. 11 in. ; ld1 19:36 BP 147 / 88; Pulse 87; Resp 16; Pulse Ox 100% on R/A; kd3 20:58 Pulse 81; Resp 16; Pulse Ox 99% on R/A; kd3 16:35 Body Mass Index 30.68 (99.79 kg, 180.34 cm) ld1 ED Course: 16:14 Patient arrived in ED. ts1 16:15 Joaquin Velazquez MD is Attending Physician. rt 16:33 Triage completed. ld1 16:33 Arm band placed on right wrist. ld1 17:43 Inserted saline lock: 20 gauge in left antecubital area, using aseptic technique. Blood ld1 collected. 17:44 Troponin High Sensitivity Sent. ld1 17:44 CMP Sent. ld1 17:44 CBC with Diff Sent. ld1 17:44 Initial lab(s) drawn, by id, sent to lab. ld1 18:02 Vamshi Alcantar PA is PHCP. cp 18:06 EKG done, by ED staff, reviewed by Joaquin Velazquez MD. mm9 18:07 Patient has correct armband on for positive identification. Warm blanket given. Cardiac mm9 monitor on. Pulse ox on. NIBP on. 18:31 CT Head Brain wo Cont In Process Unspecified. EDMS 19:36 Carmen Valiente, RN is Primary Nurse. kd3 20:57 No provider procedures requiring assistance completed. IV discontinued, intact, kd3 bleeding controlled, No redness/swelling at site. Pressure dressing applied. Administered Medications: 17:44 Drug: Decadron - Dexamethasone IVP 10 mg Route: IVP; Site: left antecubital; ld1 20:59 Follow up: Response: No adverse reaction kd3 17:44 Drug: diphenhydrAMINE IVP 25 mg Route: IVP; Site: left antecubital; ld1 20:59 Follow up: Response: No adverse reaction kd3 17:45 Drug: NS 0.9% IV 1000 ml Route: IV; Rate: 1 bolus; Site: left antecubital; ld1 20:59 Follow up: Response: No adverse reaction; IV Status: Completed infusion kd3 17:45 Drug: metoCLOPramide IVP 10 mg Route: IVP; Site: left antecubital; ld1 20:59 Follow up: Response: No adverse reaction kd3 Medication: 20:58 VIS not applicable for this client. kd3 Outcome: 19:48 Discharge ordered by MD. cp 20:58 Discharged to home ambulatory. kd3 20:58 Condition: stable 20:58 Discharge instructions given to patient, family, Instructed on discharge instructions, follow up and referral plans. Demonstrated understanding of instructions, follow-up care. 20:59 Patient left the ED. kd3 Signatures: Dispatcher [employer] EDMO Vamshi Alcantar PA PA cp Sims, Lauren, RN RN ld1 Carmen Valiente RN RN kd3 Leanna Tuttle mm9 Joaquin Velazquez MD MD rt Vanessa Lemon, PAS PAS ts1 Corrections: (The following items were deleted from the chart) 16:34 16:32 Chief complaint: Patient states: Migraine X 4 days ld1 ld1
[2023-02-14 21:13] VITALS: TEMP 97.5
[2023-02-14 21:15] VITALS: BP 147/88
[2023-02-14 21:17] VITALS: O2SAT 99
--- NOTE | 2023-02-17 12:10 | EKG ---
Test Date: 2023-02-14 Test Time: 17:53:27 Manager Custom: SHANI MEASUREMENT RESULTS: Intervals: Rate: 76 DE: 114 QRSD: 80 QT: 354 QTc: 398 [facility]: P: 49 DE: 114 QRS: 97 T: 74 INTERPRETIVE STATEMENTS: Normal sinus rhythm Rightward axis Borderline ECG Compared to ECG 10/09/2019 03:36:17 Sinus tachycardia no longer present Electronically Signed On 02-17-23 12:01:26 CDT by Dmitry Kimball
== END 2023-02-14 20:59 | disposition home or self-care (01) ==
LOC: ER 16:12
DX: I11.9 Hypertensive heart disease without heart failure (principal); I10 Essential (primary) hypertension; Z87.820 Personal history of traumatic brain injury; Z91.51 Personal history of suicidal behavior
CPT/HCPCS: 96361; 93005; 85025; 36415; 84484; 80053; 70450; 96375; 96374; 99285; J2765; J1200; J1100; J7030

== ENCOUNTER 2023-03-06 08:53 | Day surgery (SDC) | payer OTHER ==
--- NOTE | 2023-03-06 09:45 | RAD REPORT ---
EXAM DESCRIPTION: RAD - Hand Left 3 View - 03/06/2023 9:35 am CLINICAL HISTORY: crush injury COMPARISON: <Comparisons> FINDINGS: Fracture is present involving the distal phalanx base the first digit. Moderate soft tissu e swelling small radiopaque debris or bony fragments in the soft tissues.
[2023-03-06] MEDS ORDERED: CEFAZOLIN SODIUM 1 GM/VIAL ONE (10:11)
[2023-03-06] MEDS ORDERED: NA CHLORIDE 0.9% 100 ML ONE (10:11)
[2023-03-06] MEDS ORDERED: DIPHENHYDRAMINE 50 MG/ML VIAL ONE (10:15)
[2023-03-06] MEDS ORDERED: METOCLOPRAMIDE 10 MG/2mL INJ ONE (10:15)
[2023-03-06] MEDS ORDERED: NA CHLORIDE 0.9% 500 ML ONE (10:15)
[2023-03-06 10:17] LABS: Absolute Lymphocytes (CBC) 1.7 K/uL (0.7-4.9); Hematocrit 46.1 % (39.6-49.0); Lymphocytes % 19.2 % (15.3-44.8); MCV 92.2 fL (80-100); MPV 10.3 fL (7.6-11.3)
[2023-03-06] MEDS ORDERED: dexAMETHasone 10 MG/ML VIAL ONE (11:38)
[2023-03-06] MEDS ORDERED: MIDAZOLAM HCL 2 MG/2 ML INJ ONE (11:38)
[2023-03-06] MEDS ORDERED: propofoL 200 MG/20 ML VIAL IV ONE (11:38)
[2023-03-06] MEDS ORDERED: FENTANYL CITR 100 MCG/2 ML ONE (11:38)
[2023-03-06] MEDS ORDERED: LIDOCAINE 2% MPF 5 ML VIAL ONE (11:39)
[2023-03-06] MEDS ORDERED: ONDANSETRON 4 MG/2 ML VIAL ONE (11:39)
[2023-03-06] MEDS ORDERED: KETOROLAC 30 MG/ML INJ ONE (11:39)
[2023-03-06] MEDS ORDERED: EPINEPHRINE/PF 1 MG/ML AMP ONE (11:42)
[2023-03-06] MEDS ORDERED: LIDOCAINE 1% MPF 2 ML AMPULE ONE (11:42)
--- NOTE | 2023-03-06 12:10 | ER ---
Nurse's Notes [facility] Name: Mahendra Xie Age: 37 yrs Sex: Male : 1985 Arrival Date: 03/06/2023 Time: 08:53 Bed 6 Private MD: Diagnosis: 1st Phalanx Fracture, Open, Left, initial visit Presentation: 03/06 09:01 Chief complaint: Patient states: L hand thumb got caught in a flywheel of boat motor 20 ll1 min [employer]. Laceration, bleeding noted towards end of digit. Coronavirus screen: Vaccine status: Patient reports being unvaccinated. Client denies travel out of the [place] in the last 14 days. At this time, the client does not indicate any symptoms associated with coronavirus-19. Ebola Screen: Patient denies travel to an Ebola-affected area in the 21 days before illness onset. Initial Sepsis Screen: Does the patient meet any 2 criteria? No. Patient's initial sepsis screen is negative. Does the patient have a suspected source of infection? Yes: Skin breakdown/wound. Risk Assessment: Do you want to hurt yourself or someone else? Patient reports no desire to harm self or others. Onset of symptoms was March 06, 2023. 09:01 Method Of Arrival: Ambulatory ll1 09:01 Acuity: SERENA 4 ll1 09:03 Acuity: SERENA 2 aa5 Triage Assessment: 09:03 General: Appears uncomfortable, Behavior is calm, cooperative, appropriate for age. ll1 Pain: Complains of pain in left hand Pain currently is 7 out of 10 on a pain scale. Quality of pain is described as aching, throbbing, Pain began 30 min ago. Derm: crush injury to L thumb Reports pain. Injury Description: Crush injury sustained to L thumb. Historical: - Allergies: 09: No Known Allergies; ll1 - PMHx: 09: Anxiety; Bronchitis; Chronic pain; Depression; Hypertension; Migraines; Suicide ll1 Attempts; TBI; - PSHx: 09:01 Ankle; back; Cholecystectomy; crainal; neck; ll1 - Immunization history:: Client reports having NOT received the Covid vaccine. Last tetanus immunization: up to date. - Social history:: Smoking status: Patient reports the use of cigarette tobacco products, smokes one pack cigarettes per day. Screenin:03 [facility] ED Fall Risk Assessment (Adult) History of falling in the last 3 months, aa5 including since admission No falls in past 3 months (0 pts) Confusion or Disorientation No (0 pts) Intoxicated or Sedated No (0 pts) Impaired Gait No (0 pts) Mobility Assist Device Used No (0 pt) Altered Elimination No (0 pt) Score/Fall Risk Level 0 - 2 = Low Risk. Abuse screen: Denies threats or abuse. Nutritional screening: No deficits noted. Tuberculosis screening: No symptoms or risk factors identified. Assessment: 09:03 General: Appears uncomfortable, Behavior is calm, cooperative. Pain: Complains of pain aa5 in left hand Pain currently is 7 out of 10 on a pain scale. Neuro: Level of Consciousness is awake, alert, obeys commands, Oriented to person, place, time, situation. Cardiovascular: Heart tones S1 S2 present Rhythm is regular. Respiratory: Airway is patent Respiratory effort is even, unlabored, Respiratory pattern is regular, symmetrical. : No signs and/or symptoms were reported regarding the genitourinary system. EENT: No signs and/or symptoms were reported regarding the EENT system. Derm: Skin is pink, warm \\T\\ dry. Musculoskeletal: Range of motion: intact in all extremities. Injury Description: Crush injury sustained to distal phalanx of left thumb, dry blood noted, hard to visualize at this time, will reassess after wound is cleaned. 09:03 GI: No signs and/or symptoms were reported involving the gastrointestinal system. aa5 09:45 Reassessment: left thumb cleaned with saline and hibiclens/iodine, pt tolerated well. aa5 Laceration to distal left thumb that is jagged, gauze dressing applied.. 09:45 Reassessment: Patient is alert, oriented x 3, equal unlabored respirations, skin aa5 warm/dry/pink. Patient denies pain at this time. 10:02 Reassessment: Patient is alert, oriented x 3, equal unlabored respirations, skin aa5 warm/dry/pink. Pt states "can you ask if I can get some Benadryl, I feel a migraine coming on?". Provider notified. . 10:15 Reassessment: Anesthesia team speaking to pt, last meal reported to be today at 0620, aa5 anesthesia team reports need to wait for approximately 8 hours post last meal before pt is taken to surgery, pt verbalizes understanding. . 11:00 Reassessment: Patient is alert, oriented x 3, equal unlabored respirations, skin aa5 warm/dry/pink. Patient denies pain at this time. Patient states feeling better. Patient states symptoms have improved. 11:40 Reassessment: Pt resting in bed with eyes closed, warm blankets provided for comfort. . aa5 12:14 Reassessment: Patient is alert, oriented x 3, equal unlabored respirations, skin aa5 warm/dry/pink. Vital Signs: 09:01 BP 148 / 98; Pulse 86; Resp 17; Temp 98.1; Pulse Ox 96% on R/A; Weight 106.59 kg; ll1 Height 6 ft. 0 in. ; Pain 7/10; 10:53 BP 138 / 90; Pulse 80; Resp 18; Pulse Ox 96% ; ls5 11:40 BP 139 / 91; Pulse 81; Resp 16 S; Pulse Ox 95% on R/A; aa5 09:01 Body Mass Index 31.87 (106.59 kg, 182.88 cm) ll1 09:01 Pain Scale: Adult ll1 ED Course: 08:55 Arm band placed on Patient placed in an exam room, on a stretcher. ll1 08:56 Patient arrived in ED. kj1 08:56 Chris Trujillo PA is PHCP. jmm 08:56 Froilan Ritchie MD is Attending Physician. jmm 08:58 Marissa Morel, RN is Primary Nurse. aa5 09:03 Triage completed. ll1 09:03 Patient has correct armband on for positive identification. Bed in low position. Call aa5 light in reach. Side rails up X 1. Adult w/ patient. 09:37 Hand Left 3 View XRAY In Process Unspecified. EDMS 10:00 Inserted saline lock: 20 gauge in right forearm, using aseptic technique. Blood aa5 collected. 12:08 Brian Aguayo MD is Hospitalizing Provider. [facility] 12:14 No provider procedures requiring assistance completed. Patient admitted, IV remains in aa5 place. Administered Medications: 09:30 Drug: Bupivacaine Infiltration (0.5 %) 20 ml {Note: administered by PA to left thumb aa5 for pain control. .} Volume: 10 ml; Route: Infiltration; 10:00 Drug: ceFAZolin IVPB 1 grams Route: IVPB; Site: right forearm; aa5 10:15 Follow up: Response: No adverse reaction; IV Status: Completed infusion; Ok to aa5 administer as IVP 10:15 Drug: NS 0.9% IV 500 ml Route: IV; Rate: bolus; Site: right forearm; aa5 12:13 Follow up: IV Status: Completed infusion; IV Intake: 500ml aa5 10:15 Drug: metoCLOPramide IVP 20 mg Route: IVP; Site: right forearm; aa5 11:00 Follow up: Response: No adverse reaction aa5 10:16 Drug: diphenhydrAMINE IVP 12.5 mg Route: IVP; Site: right forearm; aa5 10:25 Follow up: Response: No adverse reaction aa5 Medication: 12:14 VIS not applicable for this client. aa5 Intake: 12:13 IV: 500ml; Total: 500ml. aa5 Outcome: 12:10 Decision to Hospitalize by Provider. tiffanie 12:14 Admitted to OR accompanied by nurse, via wheelchair, with chart, Other Report given to aa5 DAYANARA Vital 12:14 Condition: stable 12:14 Instructed on the need for admit, Demonstrated understanding of instructions. 12:15 Patient left the ED. aa5 Signatures: Dispatcher [employer] EDMS Chris Trujillo PA PA jmm Calderon, Audri, RN RN aa5 Nayla Barraza1 Rj August RN RN ll1 Freeman Morejon ls5 Corrections: (The following items were deleted from the chart) 09:18 08:53 General: Appears uncomfortable, Behavior is calm, cooperative, aa5 aa5 :18 08:53 Pain: Complains of pain in left hand Pain currently is 7 out of 10 on a pain aa5 scale. aa5 :18 08:53 Neuro: Level of Consciousness is awake, alert, obeys commands, Oriented to aa5 person, place, time, situation, aa5 :18 08:53 Cardiovascular: Heart tones S1 S2 present Rhythm is regular aa5 aa5 :18 08:53 Respiratory: Airway is patent Respiratory effort is even, unlabored, Respiratory aa5 pattern is regular, symmetrical, aa5 :18 08:53 GI: No signs and/or symptoms were reported involving the gastrointestinal system. aa5 aa5 08:53 : No signs and/or symptoms were reported regarding the genitourinary system. aa5aa5 08:53 EENT: No signs and/or symptoms were reported regarding the EENT system. aa5 aa5 08:53 Derm: Skin is pink, warm \\T\\ dry. aa5 aa5 08:53 Musculoskeletal: Range of motion: intact in all extremities, aa5 aa5 08:53 Injury Description: Crush injury sustained to distal phalanx of left thumb, dry aa5 blood noted, hard to visualize at this time, will reassess after wound is cleaned. aa5 : 09:15 Bupivacaine Infiltration (0.5 %) 20 ml 10 ml Infiltration; administered by PA to aa5 left thumb for pain control. aa5
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
[2023-03-06] MEDS ORDERED: Ringers Lactate 1,000 ML IV ONE (12:31)
[2023-03-06 14:17] VITALS: TEMP 97.2
[2023-03-06] MEDS ORDERED: BUPIVACAINE 0.5% PF 10 ML VIAL ONE (14:22)
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
--- NOTE | 2023-03-06 15:04 | OP ---
Surgeon: Brian Aguayo MD Preoperative Diagnosis: Open fracture of distal phalanx of the left thumb. Postoperative Diagnosis: Open fracture of distal phalanx of the left thumb. Procedure Performed: Debridement of skin, subcutaneous tissue, bone, partial nail bed ablation, open reduction and internal fixation, K-wire . Nail bed repair. Anesthesia: General. Procedure In Detail: After satisfactory induction of general anesthesia, the hand prepped and draped with Betadine scrub and Betadine paint. Dry sterile drapes were applied in the usual manner. The a rm was elevated, exsanguinated with an Esmarch. Tourniquet was inflated to [address] d on roll lock table. A periosteal elevator was used to remove the nail plate. Then, the patient un derwent debridement and repair of lacerations with a defect about 4 mm wide. The wound was jet lavag ed, irrigated with 3 L of Betadine solution. Then, a K-wire was passed from distal to proximal impal ing . This reduced the fracture . The patient had portion of nail bed ablated b ecause this was missing the nail bed. The flap was advanced proximally and a curvilinear incision was made proximally to advance distally. The wound was closed with 4-0 Prolene simple sutur es. The nail plate was sewn back with 4-0 Prolene and laceration of the nail bed was repaired with h orizontal mattress 4-0 Prolene. Tourniquet released. Dressed with Xeroform, 2-inch Kacy, and a splint holding DIP thumb in extension. The patient tolerated the procedure well. GH/MODL Voice ID: [id number] Report ID: [id number]
[2023-03-06 15:23] VITALS: BP 146/88; O2SAT 98
--- NOTE | 2023-03-06 16:25 | RAD REPORT ---
EXAM DESCRIPTION: - Finger-Thumb Left - 03/06/2023 1:50 pm CLINICAL HISTORY: ORIF LT THUMB FX COMPARISON: None available. FINDINGS: A single image was sent to PACS, documenting needle positions during an image guided open reduction/ internal fixation procedure of the left thumb. No radiologist was available for the proced ure, nor will any image interpretation he provided. Please refer to the procedural report for additio nal details. Fluoroscopy time: Less than 0.1 Minutes. IMPRESSION: Documentation of fluoroscopy utilization as above.
== END 2023-03-06 15:10 | disposition home or self-care (01) ==
LOC: ER 08:53 → DS 12:07
PROVIDERS: ATTEND Specialist
PROC: 0HXGXZZ Transfer Left Hand Skin, External Approach (ICD-10-PCS; 2023-03-06)
PROC: 0PSS04Z Reposition Left Thumb Phalanx with Internal Fixation Device, Open Approach (ICD-10-PCS; principal; 2023-03-06 12:00)
DX: S62.522B Displaced fracture of distal phalanx of left thumb, initial encounter for open fracture (principal)
CPT/HCPCS: 26765; 11012; 14040; 85025; 80048; 36415; 73140; 73130; J2704; J0171; J2765; J1200; J2001; J2250; J3010; J1100; J2405; J7120; J7040; J0690